=== PATIENT | female | born 1945 | race Caucasian/White ===

== ENCOUNTER 2018-12-04 03:19 | Observation (INO) ==
[2018-12-04] MEDS ORDERED: *HR* FentaNYL (PF) 100 MCG/2 ML VIAL IM ONE (04:09)
--- NOTE | 2018-12-04 04:17 | Emergency Department Note ---
Disposition Clinical Impression: Left hip pain Disposition: Still a Patient Referrals: Ana Slaughter CNP [Primary Care Provider] - Forms: ED Satisfaction Letter, Work/School Release Time of Disposition: 05:47 General Adult HPI - General Chief complaint: ED General Medical Stated complaint: left nona pain Time Seen by Provider: 12/04/18 03:32 Source: patient Nursing Notes Reviewed: Yes Vital Signs Reviewed: Yes - History of Present Illness HPI Narrative: 73-year-old female with complaint of Left lower extremity pain. She states that the pain has been persisting for "14 days". She states it is worse tonight. Tonight she mentions that she had to go to her neighbor's and all night because she was unable to move her left leg because of the pain. When I ask her, she denies any weakness, but states that she had difficulty moving it only because of pain. Most recent was approximately 2 days ago. Patient states that she has been taking Tylenol 4 times a day. She indicates the pain is just above her knee, she feels that it is better when she flexes her hip and knee on the same time. Patient states after her pain has started she was seen in the ED, and had utilized a brace and a walker, however she had fallen utilizing. She denies any reinjury since previous workups. She is not known to have a history of DVT. Patient denies any other pain other than her proximal left lower extremity. She denies any generalized muscle aches, fever, redness, swelling, bowel or bladder changes, injury or trauma. Pt denies any SI, HI, depression. Pain Scale: 5 - Related Data Home Medications Medication Instructions Recorded Confirmed ALPRAZolam [Xanax 0.5 MG Tablet] 0.5 mg PO DAILY 08/27/15 11/30/18 Acidophilus 1 tab PO DAILY 08/27/15 11/30/18 Buspirone 10 mg PO TID 08/27/15 11/30/18 Calcium Carb/Vit D3/Minerals 600 mg PO DAILY 08/27/15 11/30/18 Docosahexanoic Acid/Epa [Fish Oil 1,000 mg PO DAILY 08/27/15 11/30/18 Concentrate Softgel] Gabapentin [Neurontin] 400 mg PO HS 08/27/15 11/30/18 Glucosamine HCl/Chondr Briones A Na 1 tab PO DAILY 08/27/15 11/30/18 [[facility] Glucosamine-Chondr Caplet] Losartan 100 mg PO DAILY 08/27/15 11/30/18 Magnesium 250 mg PO DAILY 08/27/15 11/30/18 Multivitamin [Multivitamins] 1 cap PO DAILY 08/27/15 11/30/18 Potassium Chloride [K-Tab ER] 10 meq PO DAILY 08/27/15 11/30/18 Pravastatin Sodium [Pravachol] 20 mg PO DAILY 08/27/15 11/30/18 Promethazine HCl 50 mg PO TID 08/27/15 11/30/18 Ropinirole HCl [Requip] 0.5 mg PO HS 08/27/15 11/30/18 Temazepam [Restoril] 1 - 2 tab PO HS 08/27/15 11/30/18 Trazodone HCl [TraZODone] 200 mg PO HS 08/27/15 11/30/18 Venlafaxine HCl [Venlafaxine HCl 75 mg PO DAILY 08/27/15 11/30/18 ER] Venlafaxine HCl [Venlafaxine HCl 225 mg PO DAILY 08/27/15 11/30/18 ER] predniSONE [PredniSONE] 10 mg PO QID 08/27/15 11/30/18 Previous Rx's Medication Instructions Recorded Acetaminophen [Tylenol] 500 mg PO Q6HR #12 tablet 09/15/18 Lidocaine Patch [Lidoderm 5% patch] 1 each TP DAILY PRN #3 adh..patch 09/15/18 Allergies Allergy/AdvReac Type Severity Reaction Status Date / Time ampicillin [From Polycillin] Allergy Rash Verified 11/30/18 00:23 methylprednisolone Allergy Rash Verified 11/30/18 00:23 NSAIDS (Non-Steroidal Allergy Rash Verified 11/30/18 00:23 Anti-Inflamma Belladonna Alkaloids AdvReac Swelling Verified 11/30/18 00:23 [From Butibel] of Lip/Tongue/Throat Butabarbital [From Butibel] AdvReac Swelling Verified 11/30/18 00:23 of Lip/Tongue/Throat Doxepin [From Sinequan] AdvReac Swelling Verified 11/30/18 00:23 of Lip/Tongue/Throat guaifenesin AdvReac Rash Verified 11/30/18 00:23 metoclopramide AdvReac See Verified 11/30/18 00:23 Comments omeprazole AdvReac Abdominal Verified 11/30/18 00:23 Pain prednisone AdvReac Nausea Verified 11/30/18 00:23 sulfamethoxazole AdvReac See Verified 11/30/18 00:23 [From Bactrim] Comments tramadol AdvReac See Verified 11/30/18 00:23 Comments trimethoprim [From Bactrim] AdvReac See Verified 11/30/18 00:23 Comments octicar AdvReac See Uncoded 11/30/18 00:23 Comments travil AdvReac Swelling Uncoded 11/30/18 00:23 of Lip/Tongue/Throat All systems ED: reviewed and negative except as stated. Review of Systems: As Per HPI Constitutional: Denies: fever, chills, weakness Eyes: Denies: vision change ENT ED: Denies: throat pain Cardiovascular: Denies: chest pain, palpitations Respiratory: Denies: cough, dyspnea Gastrointestinal: Denies: abdominal pain, nausea, vomiting Genitourinary: Denies: dysuria, frequency Musculoskeletal: Denies: back pain, neck pain Past Medical History - Past Medical History Medical history: Reports: arthritis, asthma, fibromyalgia, hypertension, RA Psychiatric history: Reports: anxiety - Social History Smoking Status: Never smoker Smokeless Tobacco Status: No Alcohol use: Reports: none Drug use: Reports: none Physical Exam - General Limitations: no limitations General appearance: alert, in no apparent distress - Head Head exam: atraumatic, normocephalic - Eye Eye exam: Present: EOMI - ENT ENT exam: normal oropharynx - Neck Neck exam: Present: normal inspection, full ROM - Chest Chest inspection: Present: normal inspection, symmetric chest wall rise - Respiratory Respiratory exam: Present: normal lung sounds bilaterally. Absent: respiratory distress - Cardiovascular Cardiovascular exam: Present: regular rate, normal rhythm - Abdominal Exam Abdominal exam: Present: soft, Non-Tender - Expanded Lower Extremity Exam Hip/Pelvis exam: Present: full ROM, pelvis stable. Absent: tenderness, swelling, ecchymosis, erythema, external rotation, internal rotation, shortening Upper leg exam: Present: tenderness (left anterior). Absent: swelling, deformity, erythema Knee exam: Present: normal inspection, full ROM. Absent: tenderness, swelling Lower leg exam: Present: normal inspection, full ROM. Absent: tenderness, swelling Foot/toe exam: Present: normal inspection, full ROM. Absent: tenderness, swelling Neurovascular/Tendon exam: Present: normal capillary refill. Absent: pulse deficit, motor deficit, sensory deficit Gait: observed and limited by pain - Back Exam Back exam: Present: full ROM. Absent: tenderness, CVA tenderness (R), CVA tenderness (L) - Neurological Exam Neurological exam: Present: alert, oriented X3 - Psychiatric Psychiatric exam: Present: normal affect, anxious - Skin Skin exam: Present: warm, dry, intact, normal color. Absent: rash, cyanosis, diaphoresis Course Course Narrative: 73-year-old female arrives via squad to the triage area, into exam room by wheelchair with complaint of left lower leg pain. Patient is tachycardic at 124 otherwise her vitals appear to be within normal limits. I was able to see patient upon her arrival to exam room, She does appear quite anxious which I do feel is the cause of her tachycardia. Patient denies any other pain other than her proximal left lower extremity. She denies any generalized muscle aches, fe bo, bowel or bladder changes, injury or trauma.Pt denies any SI, HI, depression. On examination patient is a well-developed well-nourished elderly female in no acute distress. She is alert and oriented x3. Lungs clear to ascultation bilaterally. Heart tachycardic and regular rhythm. Abdomen soft and nontender with normal bowel sounds. No CVA or flank tenderness. No lumbar tenderness. Pelvis stable and nontender to palpation and compression. Left hip pain, appears worse with flexion and palpation. No gross focal neurological deficits. No evidence of any injury or trauma, unilateral leg swelling, concerning rashes or lesions, erythema, edema. no tenderness over her knee ankle or foot. On examination no evidence of any injury or trauma or signs of any infectious cause. I did have an opportunity to review her EMR. This is her 4th visit in two weeks. Patient has had workups including lab work, CT imaging of abdomen and pelvis, femur CT, left hip CT. Images did show some diverticulosis , mild degenerative changes of her left hip, and constipation, otherwise appear to be unremarkable. Most recent blood work was within normal limits. Initially did have a pleasant discussion with patient regarding her pain, previous treatments, and other topics. I do feel she is alert and oriented 3. Although anxious, she does not appear to be confused with some but not all questions although she does appear to be altered or intoxicated. OARRS reviewed. Pt is prescribed 0.5 alprazolam monthly by her psychiatrist Dr. Maggy Angelo. she mentions she has recently switched her PCP but is unable to tell me their names. She is unsure where or if she had any PT. She does have a brother who lives locally and apparently was with her during one of her recent hospitals stays. She becomes tearful when she mentions her concern for another "tumor", she said it was in her hip region and that it was benign. She becomes intermittently tearful during our discussion. She appears to be frustrated and more anxious when discussing her past care, and any past treatment of her hip. Exam and history does not appear to be consistent with DVT, peripheral arterial disease, lumbar radiculopathy. I will attempt to manage patien't pain and anxiety and plan for re-eval. - Reevaluation(s) Reevaluation #1: Patient did state that she had some relief after IM fentanyl and by mouth Tylenol. Additionally, her heart rate improved from 124 to 105. She does remain very anxious, and intermittently becomes tearful. I feel patient may warrant an admission as she lives alone with no home health. She utilizes Xanax at home, and I feel narcotic pain medications would increase her fall risk. I did discuss patient with Dr. Delgado who also had face time with patient and after his visit with patient, he does agree patient does not appear AMS, but does mention pt appears to have worsening chronic confusion with some psychiatric overtones. Would benefit from admission for pain control, likely social work consult, ortho consult, and possibly MRI of left hip. I have ordered basic labs, UA as well, CRP, SED rate, uric acid and CK. Time: 05:38 Reevaluation #2: At this time seen of my shift, care of this patient will be transferred over to day shift provider Krish Renteria CNP. Please see his further documentation for final evaluation and disposition of this patient. Time: 05:43 Vital Signs Temperature 98.6 F 12/04/18 03:25 Pulse Rate 124 12/04/18 03:25 Respiratory Rate 21 12/04/18 03:25 Blood Pressure 152/86 12/04/18 03:25 O2 Sat by Pulse Oximetry 97 12/04/18 03:25 Temperature 98.6 F 12/04/18 03:25 Pulse Rate 105 12/04/18 04:46 Respiratory Rate 21 12/04/18 03:25 Blood Pressure 158/85 12/04/18 04:46 O2 Sat by Pulse Oximetry 97 12/04/18 03:25 Oxygen Delivery Oxygen Delivery Room Air Medical Decision Making - Medical Records Medical records reviewed: Yes I reviewed the patient's medical records.
[2018-12-04 06:29] LABS: Bilirubin,Urine Small (Negative); Blood,Urine Negative (Negative); Clarity,Urine Clear (Clear); Color,Urine Yellow (Yellow); Glucose,Urine (UA) Normal (Normal); Ketones,Urine Trace mg/dL (Negative); Leukocyte Esterase,Urine Negative (Negative); Nitrite,Urine Negative (Negative); PH,Urine 5.5 pH Units (5.0-8.0); Protein,Urine 30 mg/dL (Neg-Trace); Specific Gravity,Urine > 1.030 (1.010-1.025); Urobilinogen,Urine Normal (Normal)
[2018-12-04 06:31] LABS: Bacteria,Urine Few per hpf (None-Few); Hyaline Casts,Urine Few per lpf (None-Few); Squamous Epithelial Cell,Urine Many per lpf (None-Few)
--- NOTE | 2018-12-04 06:54 | Emergency Department Note ---
Disposition Clinical Impression: Left hip pain Disposition: Admitted As Inpatient Condition: Good General Adult HPI - General Chief complaint: ED Extremity Problem,Nontraumatic Stated complaint: left leg pain Time Seen by Provider: 12/04/18 03:32 Source: patient Limitations: no limitations Nursing Notes Reviewed: Yes Vital Signs Reviewed: Yes - History of Present Illness Pain Scale: 5 - Related Data Home Medications Medication Instructions Recorded Confirmed ALPRAZolam [Xanax 0.5 MG Tablet] 0.5 mg PO DAILY 08/27/15 12/04/18 Multivitamin [Multivitamins] 1 cap PO DAILY 08/27/15 12/04/18 Potassium Chloride [K-Tab ER] 10 meq PO DAILY 08/27/15 12/04/18 Pravastatin Sodium [Pravachol] 20 mg PO DAILY 08/27/15 12/04/18 Buspirone HCl [Buspar] 30 mg PO BID 12/04/18 12/04/18 Cetirizine HCl [24Hour Allergy] 10 mg PO DAILY 12/04/18 12/04/18 Fluticasone Propionate Nasal 1 spr NS BID 12/04/18 12/04/18 [Flonase] Metoprolol [Lopressor] 25 mg PO BID 12/04/18 12/04/18 Sertraline [Zoloft] 100 mg PO DAILY 12/04/18 12/04/18 Solifenacin Succinate [Vesicare] 5 mg PO DAILY 12/04/18 12/04/18 Trazodone HCl 200 mg PO HS 12/04/18 12/04/18 Venlafaxine HCl [Venlafaxine HCl 150 mg PO BID 12/04/18 12/04/18 ER] Allergies Allergy/AdvReac Type Severity Reaction Status Date / Time ampicillin [From Polycillin] Allergy Rash Verified 11/30/18 00:23 methylprednisolone Allergy Rash Verified 11/30/18 00:23 NSAIDS (Non-Steroidal Allergy Rash Verified 11/30/18 00:23 Anti-Inflamma Belladonna Alkaloids AdvReac Swelling Verified 11/30/18 00:23 [From Butibel] of Lip/Tongue/Throat Butabarbital [From Butibel] AdvReac Swelling Verified 11/30/18 00:23 of Lip/Tongue/Throat Doxepin [From Sinequan] AdvReac Swelling Verified 11/30/18 00:23 of Lip/Tongue/Throat guaifenesin AdvReac Rash Verified 11/30/18 00:23 metoclopramide AdvReac See Verified 11/30/18 00:23 Comments omeprazole AdvReac Abdominal Verified 11/30/18 00:23 Pain prednisone AdvReac Nausea Verified 11/30/18 00:23 sulfamethoxazole AdvReac See Verified 11/30/18 00:23 [From Bactrim] Comments tramadol AdvReac See Verified 11/30/18 00:23 Comments trimethoprim [From Bactrim] AdvReac See Verified 11/30/18 00:23 Comments octicar AdvReac See Uncoded 11/30/18 00:23 Comments travil AdvReac Swelling Uncoded 11/30/18 00:23 of Lip/Tongue/Throat Constitutional: Denies: fever, chills, weakness Eyes: Denies: vision change ENT ED: Denies: throat pain Cardiovascular: Denies: chest pain, palpitations Respiratory: Denies: cough, dyspnea Gastrointestinal: Denies: abdominal pain, nausea, vomiting Genitourinary: Denies: dysuria, frequency Musculoskeletal: Denies: back pain, neck pain Past Medical History - Past Medical History Medical history: Reports: arthritis, asthma, fibromyalgia, hypertension, RA Psychiatric history: Reports: anxiety - Social History Smoking Status: Never smoker Smokeless Tobacco Status: No Alcohol use: Reports: none Drug use: Reports: none Physical Exam - General Limitations: no limitations General appearance: alert, in no apparent distress Course Vital Signs Temperature 98.6 F 12/04/18 03:25 Pulse Rate 124 12/04/18 03:25 Respiratory Rate 21 12/04/18 03:25 Blood Pressure 152/86 12/04/18 03:25 O2 Sat by Pulse Oximetry 97 12/04/18 03:25 Temperature 98.3 F 12/04/18 18:35 Pulse Rate 119 12/04/18 18:35 Respiratory Rate 18 12/04/18 18:35 Blood Pressure 102/64 12/04/18 18:35 O2 Sat by Pulse Oximetry 98 12/04/18 18:35 Oxygen Delivery Oxygen Delivery Nasal Cannula Medical Decision Making - Medical Records Medical records reviewed: Yes I reviewed the patient's medical records. - Lab Data Lab results reviewed: Yes I reviewed the patient's lab results. Result diagrams: 12/04/18 06:48 12/04/18 06:48 Lab Results 12/04/18 12/04/18 12/04/18 Range/Units 06:17 06:48 06:48 WBC 14.0 H (4.3-11.1) K/mcL RBC 4.62 (3.82-4.97) M/mcL Hgb 15.3 (11.5-15.4) g/dL Hct 45.3 H (35.3-44.9) % MCV 98.1 (83.0-100.0) fL MCH 33.1 (28.0-33.3) pg MCHC 33.8 (31.6-35.5) g/dL RDW 12.6 (11.5-14.5) % Plt Count 224 (140-400) K/mcL MPV 10.4 (9.4-12.4) fL Immature Gran % 0.4 (0-4) % Seg Neutrophils % 68.8 % Lymphocytes % 22.7 % Monocytes % 7.4 % Eosinophils % 0.4 % Basophils % 0.3 % Neutrophils # 9.6 H (1.6-8.9) K/mcL Lymphocytes # 3.2 (0.6-4.6) K/mcL Monocytes # 1.0 (0.0-1.3) K/mcL Eosinophils # 0.1 (0.0-0.6) K/mcL Basophils # 0.0 (0.0-0.2) K/mcL ESR 24 H (0-15) mm/hr Sodium (136-145) mEq/L Potassium (3.5-5.1) mEq/L Chloride (98-107) mEq/L Carbon Dioxide (23-29) mEq/L BUN (8-23) mg/dL Creatinine (0.60-1.20) mg/dL Est GFR ( Amer) (> 60) Est GFR (Non-Af Amer) (> 60) BUN/Creatinine Ratio (6-26) Glucose (70-105) mg/dL Calculated Osmolality (280-300) Uric Acid (2.3-7.6) mg/dL Calcium (8.6-10.3) mg/dL Creatine Kinase (30-223) Units/L C-Reactive Protein (Less than 10) mg/L Urine Color Yellow (Yellow) Urine Clarity Clear (Clear) Urine pH 5.5 (5.0-8.0) pH Units Ur Specific [place] > 1.030 H (1.010-1.025) Urine Protein 30 H (Neg-Trace) mg/dL Urine Glucose (UA) Normal (Normal) mg/dL Urine Ketones Trace H (Negative) mg/dL Urine Blood Negative (Negative) Urine Nitrite Negative (Negative) Urine Bilirubin Small H (Negative) Urine Urobilinogen Normal (Normal) mg/dL Ur Leukocyte Esterase Negative (Negative) Urine Microscopic RBC 5-15 H (0-3) per hpf Urine Microscopic WBC 3-5 H (0-3) per hpf Ur Squamous Epith Cells Many H (None-Few) per lpf Urine Bacteria Few (None-Few) per hpf Hyaline Casts Few (None-Few) per lpf Ur Culture Indicated? YES A (NO) 12/04/18 Range/Units 06:48 WBC (4.3-11.1) K/mcL RBC (3.82-4.97) M/mcL Hgb (11.5-15.4) g/dL Hct (35.3-44.9) % MCV (83.0-100.0) fL MCH (28.0-33.3) pg MCHC (31.6-35.5) g/dL RDW (11.5-14.5) % Plt Count (140-400) K/mcL MPV (9.4-12.4) fL Immature Gran % (0-4) % Seg Neutrophils % % Lymphocytes % % Monocytes % % Eosinophils % % Basophils % % Neutrophils # (1.6-8.9) K/mcL Lymphocytes # (0.6-4.6) K/mcL Monocytes # (0.0-1.3) K/mcL Eosinophils # (0.0-0.6) K/mcL Basophils # (0.0-0.2) K/mcL ESR (0-15) mm/hr Sodium 140 (136-145) mEq/L Potassium 3.6 (3.5-5.1) mEq/L Chloride 106 (98-107) mEq/L Carbon Dioxide 23 (23-29) mEq/L BUN 17 (8-23) mg/dL Creatinine 0.85 (0.60-1.20) mg/dL Est GFR ( Amer) > 60 (> 60) Est GFR (Non-Af Amer) > 60 (> 60) BUN/Creatinine Ratio 20 (6-26) Glucose 100 (70-105) mg/dL Calculated Osmolality 292 (280-300) Uric Acid 4.3 (2.3-7.6) mg/dL Calcium 10.1 (8.6-10.3) mg/dL Creatine Kinase 124 (30-223) Units/L C-Reactive Protein < 5 (Less than 10) mg/L Urine Color (Yellow) Urine Clarity (Clear) Urine pH (5.0-8.0) pH Units Ur Specific [place] (1.010-1.025) Urine Protein (Neg-Trace) mg/dL Urine Glucose (UA) (Normal) mg/dL Urine Ketones (Negative) mg/dL Urine Blood (Negative) Urine Nitrite (Negative) Urine Bilirubin (Negative) Urine Urobilinogen (Normal) mg/dL Ur Leukocyte Esterase (Negative) Urine Microscopic RBC (0-3) per hpf Urine Microscopic WBC (0-3) per hpf Ur Squamous Epith Cells (None-Few) per lpf Urine Bacteria (None-Few) per hpf Hyaline Casts (None-Few) per lpf Ur Culture Indicated? (NO) Attestation Statement - Attestation Attestation: I, Antonio Delgado MD, personally evaluated this patient and discussed their management with the midlevel provicer, PAC/PARTS COUNTER ASSOCIATE. I reviewed the midlevel provider's note and agree with the documented findings, medical decision making, and plan of care. 73-year-old female presented to the emergency department with a complaint of pain in her left groin and hip area. She states this started 14 days ago. She denies any fall or injury to the area. Onset was sudden. She states it only h urts when she puts pressure on the hip and she has had difficulty ambulating. This is her fourth visit to the emergency department for this complaint. She has had previous CT scans and workups. She apparently was sent home with a walker and knee immobilizer on the initial visit but then she states she fell 3 times at home because of the knee immobilizer and walker so she quit using them. She apparently also has a psychiatric history. She does appear very anxious and tearful intermittently. Patient also seems to have some degree of dementia. She seems to get confused while talking with her and has trouble answering some questions. She states that she had some kind of surgery on her left hip for a cyst in the joint many years ago however I do not see any scar over the hip area. On examination patient is a well-developed well-nourished elderly female in no acute distress. She is alert and oriented 3. There is no cyanosis or diaphoresis. Breath sounds are clear and equal bilaterally. Heart regular rate and rhythm. Abdomen soft and nontender with normal bowel sounds. There is tenderness to palpation in the left inguinal region. No palpable mass or lymph nodes. No swelling or redness. She has good range of motion of the left hip but has pain with movement. Neurovascular function intact distally. On further discussion with the patient I ask her what she felt we could do to help her and she reported that she did not feel comfortable going home and felt like she needed to come in the hospital for a few days for them to find out what is going on with her hip. We will obtain lab work and consult the hospitalist for admission for reevaluation and possible MRI of the hip as well as social media specialist evaluation. Labs reviewed. At shift change patient was signed out to the oncoming mid-level provider. Hospitalist consulted and accepted admission of the patient.
[2018-12-04 06:59] LABS: Basophils % 0.3 %; Eosinophils # 0.1 K/mcL (0.0-0.6); Eosinophils % 0.4 %; Hematocrit 45.3 % (35.3-44.9); Hemoglobin 15.3 g/dL (11.5-15.4); Immature Granulocytes % 0.4 % (0-4); Lymphocytes # 3.2 K/mcL (0.6-4.6); Lymphocytes % 22.7 %; Mean Corpuscular HGB Conc 33.8 g/dL (31.6-35.5); Mean Corpuscular Hemoglobin 33.1 pg (28.0-33.3); Mean Corpuscular Volume 98.1 fL (83.0-100.0); Mean Platelet Volume 10.4 fL (9.4-12.4); Monocytes % 7.4 %; Neutrophils # 9.6 K/mcL (1.6-8.9); Platelet Count 224 K/mcL (140-400); Red Blood Count 4.62 M/mcL (3.82-4.97); Red Cell Distribution Width 12.6 % (11.5-14.5); Segmented Neutrophils % 68.8 %
--- NOTE | 2018-12-04 07:02 | Emergency Department Note ---
Disposition Clinical Impression: Left hip pain Disposition: Admitted As Inpatient Condition: Good Time of Disposition: 08:37 General Adult HPI - General Chief complaint: ED Extremity Problem,Nontraumatic Stated complaint: left leg pain Time Seen by Provider: 12/04/18 03:32 Source: patient Limitations: no limitations - History of Present Illness Pain Scale: 5 - Related Data Home Medications Medication Instructions Recorded Confirmed ALPRAZolam [Xanax 0.5 MG Tablet] 0.5 mg PO DAILY 08/27/15 11/30/18 Acidophilus 1 tab PO DAILY 08/27/15 11/30/18 Buspirone 10 mg PO TID 08/27/15 11/30/18 Calcium Carb/Vit D3/Minerals 600 mg PO DAILY 08/27/15 11/30/18 Docosahexanoic Acid/Epa [Fish Oil 1,000 mg PO DAILY 08/27/15 11/30/18 Concentrate Softgel] Gabapentin [Neurontin] 400 mg PO HS 08/27/15 11/30/18 Glucosamine HCl/Chondr Briones A Na 1 tab PO DAILY 08/27/15 11/30/18 [[facility] Glucosamine-Chondr Caplet] Losartan 100 mg PO DAILY 08/27/15 11/30/18 Magnesium 250 mg PO DAILY 08/27/15 11/30/18 Multivitamin [Multivitamins] 1 cap PO DAILY 08/27/15 11/30/18 Potassium Chloride [K-Tab ER] 10 meq PO DAILY 08/27/15 11/30/18 Pravastatin Sodium [Pravachol] 20 mg PO DAILY 08/27/15 11/30/18 Promethazine HCl 50 mg PO TID 08/27/15 11/30/18 Ropinirole HCl [Requip] 0.5 mg PO HS 08/27/15 11/30/18 Temazepam [Restoril] 1 - 2 tab PO HS 08/27/15 11/30/18 Trazodone HCl [TraZODone] 200 mg PO HS 08/27/15 11/30/18 Venlafaxine HCl [Venlafaxine HCl 75 mg PO DAILY 08/27/15 11/30/18 ER] Venlafaxine HCl [Venlafaxine HCl 225 mg PO DAILY 08/27/15 11/30/18 ER] predniSONE [PredniSONE] 10 mg PO QID 08/27/15 11/30/18 Previous Rx's Medication Instructions Recorded Acetaminophen [Tylenol] 500 mg PO Q6HR #12 tablet 09/15/18 Lidocaine Patch [Lidoderm 5% patch] 1 each TP DAILY PRN #3 adh..patch 09/15/18 Allergies Allergy/AdvReac Type Severity Reaction Status Date / Time ampicillin [From Polycillin] Allergy Rash Verified 11/30/18 00:23 methylprednisolone Allergy Rash Verified 11/30/18 00:23 NSAIDS (Non-Steroidal Allergy Rash Verified 11/30/18 00:23 Anti-Inflamma Belladonna Alkaloids AdvReac Swelling Verified 11/30/18 00:23 [From Butibel] of Lip/Tongue/Throat Butabarbital [From Butibel] AdvReac Swelling Verified 11/30/18 00:23 of Lip/Tongue/Throat Doxepin [From Sinequan] AdvReac Swelling Verified 11/30/18 00:23 of Lip/Tongue/Throat guaifenesin AdvReac Rash Verified 11/30/18 00:23 metoclopramide AdvReac See Verified 11/30/18 00:23 Comments omeprazole AdvReac Abdominal Verified 11/30/18 00:23 Pain prednisone AdvReac Nausea Verified 11/30/18 00:23 sulfamethoxazole AdvReac See Verified 11/30/18 00:23 [From Bactrim] Comments tramadol AdvReac See Verified 11/30/18 00:23 Comments trimethoprim [From Bactrim] AdvReac See Verified 11/30/18 00:23 Comments octicar AdvReac See Uncoded 11/30/18 00:23 Comments travil AdvReac Swelling Uncoded 11/30/18 00:23 of Lip/Tongue/Throat Constitutional: Denies: fever, chills, weakness Eyes: Denies: vision change ENT ED: Denies: throat pain Cardiovascular: Denies: chest pain, palpitations Respiratory: Denies: cough, dyspnea Gastrointestinal: Denies: abdominal pain, nausea, vomiting Genitourinary: Denies: dysuria, frequency Musculoskeletal: Denies: back pain, neck pain Past Medical History - Past Medical History Medical history: Reports: arthritis, asthma, fibromyalgia, hypertension, RA Psychiatric history: Reports: anxiety - Social History Smoking Status: Never smoker Smokeless Tobacco Status: No Alcohol use: Reports: none Drug use: Reports: none Physical Exam - General Limitations: no limitations General appearance: alert, in no apparent distress Course Course Narrative: 599: I have assumed care of this patient from DEBORAH Nicolas due to mid-level shift change. Please see Fidencio's documentation for care performed prior to my arrival. Briefly, this is an alert and oriented 73-year-old female resents for complaints of left groin/thigh pain. Pain has been persistent for the past 2 weeks or so. This is her fourth visit since November 20 for the same complaint. She states that she has difficulty ambulating because of the pain. She denies any weakness of the extremity. She has been taking Tylenol regularly at home without improvement. She had been utilizing a knee brace and walker however she had had a fall while utilizing these devices. No additional injury since previous workups. She denied any fever or chills. She has had multiple images performed on the left hip. CT shows mild degenerative changes of the left hip, otherwise unremarkable. Throughout Fidencio's consultation patient, she became tearful on multiple occasions. She denied any homicidal or suicidal ideations. She appeared to be a frustrating with this unexplained left hip pain. She was given intramuscular fentanyl and by mouth Tylenol. She stated she did have some relief afterwards. She remains anxious and tearful. The patient lives home alone with no home health or other assistance. This patient's case was di scussed with Dr. Delgado. It was agreed that the patient would benefit from admission to the hospital service for potential orthopedics consult as well as potential social sciences research scientist input. Laboratory workup is pending at this time. I spoke with the admitting hospitalist, Dr. Jeffrey who has accepted the patient for admission to the hospital service. Vital Signs Temperature 98.6 F 12/04/18 03:25 Pulse Rate 124 12/04/18 03:25 Respiratory Rate 21 12/04/18 03:25 Blood Pressure 152/86 12/04/18 03:25 O2 Sat by Pulse Oximetry 97 12/04/18 03:25 Temperature 98.6 F 12/04/18 03:25 Pulse Rate 88 12/04/18 07:52 Respiratory Rate 16 12/04/18 07:52 Blood Pressure 194/92 12/04/18 07:52 O2 Sat by Pulse Oximetry 98 12/04/18 07:52 Oxygen Delivery Oxygen Delivery Room Air Medical Decision Making - Medical Records Medical records reviewed: Yes I reviewed the patient's medical records. - Lab Data Lab results reviewed: Yes I reviewed the patient's lab results. Lab results narrative: Lab Results 12/04/18 12/04/18 12/04/18 Range/Units 06:17 06:48 06:48 WBC 14.0 H (4.3-11.1) K/mcL RBC 4.62 (3.82-4.97) M/mcL Hgb 15.3 (11.5-15.4) g/dL Hct 45.3 H (35.3-44.9) % MCV 98.1 (83.0-100.0) fL MCH 33.1 (28.0-33.3) pg MCHC 33.8 (31.6-35.5) g/dL RDW 12.6 (11.5-14.5) % Plt Count 224 (140-400) K/mcL MPV 10.4 (9.4-12.4) fL Immature Gran % 0.4 (0-4) % Seg Neutrophils % 68.8 % Lymphocytes % 22.7 % Monocytes % 7.4 % Eosinophils % 0.4 % Basophils % 0.3 % Neutrophils # 9.6 H (1.6-8.9) K/mcL Lymphocytes # 3.2 (0.6-4.6) K/mcL Monocytes # 1.0 (0.0-1.3) K/mcL Eosinophils # 0.1 (0.0-0.6) K/mcL Basophils # 0.0 (0.0-0.2) K/mcL ESR 24 H (0-15) mm/hr Sodium (136-145) mEq/L Potassium (3.5-5.1) mEq/L Chloride (98-107) mEq/L Carbon Dioxide (23-29) mEq/L BUN (8-23) mg/dL Creatinine (0.60-1.20) mg/dL Est GFR ( Amer) (> 60) Est GFR (Non-Af Amer) (> 60) BUN/Creatinine Ratio (6-26) Glucose (70-105) mg/dL Calculated Osmolality (280-300) Uric Acid (2.3-7.6) mg/dL Calcium (8.6-10.3) mg/dL Creatine Kinase (30-223) Units/L C-Reactive Protein (Less than 10) mg/L Urine Color Yellow (Yellow) Urine Clarity Clear (Clear) Urine pH 5.5 (5.0-8.0) pH Units Ur Specific [place] > 1.030 H (1.010-1.025) Urine Protein 30 H (Neg-Trace) mg/dL Urine Glucose (UA) Normal (Normal) mg/dL Urine Ketones Trace H (Negative) mg/dL Urine Blood Negative (Negative) Urine Nitrite Negative (Negative) Urine Bilirubin Small H (Negative) Urine Urobilinogen Normal (Normal) mg/dL Ur Leukocyte Esterase Negative (Negative) Urine Microscopic RBC 5-15 H (0-3) per hpf Urine Microscopic WBC 3-5 H (0-3) per hpf Ur Squamous Epith Cells Many H (None-Few) per lpf Urine Bacteria Few (None-Few) per hpf Hyaline Casts Few (None-Few) per lpf Ur Culture Indicated? YES A (NO) 12/04/18 Range/Units 06:48 WBC (4.3-11.1) K/mcL RBC (3.82-4.97) M/mcL Hgb (11.5-15.4) g/dL Hct (35.3-44.9) % MCV (83.0-100.0) fL MCH (28.0-33.3) pg MCHC (31.6-35.5) g/dL RDW (11.5-14.5) % Plt Count (140-400) K/mcL MPV (9.4-12.4) fL Immature Gran % (0-4) % Seg Neutrophils % % Lymphocytes % % Monocytes % % Eosinophils % % Basophils % % Neutrophils # (1.6-8.9) K/mcL Lymphocytes # (0.6-4.6) K/mcL Monocytes # (0.0-1.3) K/mcL Eosinophils # (0.0-0.6) K/mcL Basophils # (0.0-0.2) K/mcL ESR (0-15) mm/hr Sodium 140 (136-145) mEq/L Potassium 3.6 (3.5-5.1) mEq/L Chloride 106 (98-107) mEq/L Carbon Dioxide 23 (23-29) mEq/L BUN 17 (8-23) mg/dL Creatinine 0.85 (0.60-1.20) mg/dL Est GFR ( Amer) > 60 (> 60) Est GFR (Non-Af Amer) > 60 (> 60) BUN/Creatinine Ratio 20 (6-26) Glucose 100 (70-105) mg/dL Calculated Osmolality 292 (280-300) Uric Acid 4.3 (2.3-7.6) mg/dL Calcium 10.1 (8.6-10.3) mg/dL Creatine Kinase 124 (30-223) Units/L C-Reactive Protein < 5 (Less than 10) mg/L Urine Color (Yellow) Urine Clarity (Clear) Urine pH (5.0-8.0) pH Units Ur Specific [place] (1.010-1.025) Urine Protein (Neg-Trace) mg/dL Urine Glucose (UA) (Normal) mg/dL Urine Ketones (Negative) mg/dL Urine Blood (Negative) Urine Nitrite (Negative) Urine Bilirubin (Negative) Urine Urobilinogen (Normal) mg/dL Ur Leukocyte Esterase (Negative) Urine Microscopic RBC (0-3) per hpf Urine Microscopic WBC (0-3) per hpf Ur Squamous Epith Cells (None-Few) per lpf Urine Bacteria (None-Few) per hpf Hyaline Casts (None-Few) per lpf Ur Culture Indicated? (NO) Result diagrams: 12/04/18 06:48 12/04/18 06:48 Lab Results 12/04/18 12/04/18 12/04/18 Range/Units 06:17 06:48 06:48 WBC 14.0 H (4.3-11.1) K/mcL RBC 4.62 (3.82-4.97) M/mcL Hgb 15.3 (11.5-15.4) g/dL Hct 45.3 H (35.3-44.9) % MCV 98.1 (83.0-100.0) fL MCH 33.1 (28.0-33.3) pg MCHC 33.8 (31.6-35.5) g/dL RDW 12.6 (11.5-14.5) % Plt Count 224 (140-400) K/mcL MPV 10.4 (9.4-12.4) fL Immature Gran % 0.4 (0-4) % Seg Neutrophils % 68.8 % Lymphocytes % 22.7 % Monocytes % 7.4 % Eosinophils % 0.4 % Basophils % 0.3 % Neutrophils # 9.6 H (1.6-8.9) K/mcL Lymphocytes # 3.2 (0.6-4.6) K/mcL Monocytes # 1.0 (0.0-1.3) K/mcL Eosinophils # 0.1 (0.0-0.6) K/mcL Basophils # 0.0 (0.0-0.2) K/mcL ESR 24 H (0-15) mm/hr Sodium (136-145) mEq/L Potassium (3.5-5.1) mEq/L Chloride (98-107) mEq/L Carbon Dioxide (23-29) mEq/L BUN (8-23) mg/dL Creatinine (0.60-1.20) mg/dL Est GFR ( Amer) (> 60) Est GFR (Non-Af Amer) (> 60) BUN/Creatinine Ratio (6-26) Glucose (70-105) mg/dL Calculated Osmolality (280-300) Uric Acid (2.3-7.6) mg/dL Calcium (8.6-10.3) mg/dL Creatine Kinase (30-223) Units/L C-Reactive Protein (Less than 10) mg/L Urine Color Yellow (Yellow) Urine Clarity Clear (Clear) Urine pH 5.5 (5.0-8.0) pH Units Ur Specific [place] > 1.030 H (1.010-1.025) Urine Protein 30 H (Neg-Trace) mg/dL Urine Glucose (UA) Normal (Normal) mg/dL Urine Ketones Trace H (Negative) mg/dL Urine Blood Negative (Negative) Urine Nitrite Negative (Negative) Urine Bilirubin Small H (Negative) Urine Urobilinogen Normal (Normal) mg/dL Ur Leukocyte Esterase Negative (Negative) Urine Microscopic RBC 5-15 H (0-3) per hpf Urine Microscopic WBC 3-5 H (0-3) per hpf Ur Squamous Epith Cells Many H (None-Few) per lpf Urine Bacteria Few (None-Few) per hpf Hyaline Casts Few (None-Few) per lpf Ur Culture Indicated? YES A (NO) 12/04/18 Range/Units 06:48 WBC (4.3-11.1) K/mcL RBC (3.82-4.97) M/mcL Hgb (11.5-15.4) g/dL Hct (35.3-44.9) % MCV (83.0-100.0) fL MCH (28.0-33.3) pg MCHC (31.6-35.5) g/dL RDW (11.5-14.5) % Plt Count (140-400) K/mcL MPV (9.4-12.4) fL Immature Gran % (0-4) % Seg Neutrophils % % Lymphocytes % % Monocytes % % Eosinophils % % Basophils % % Neutrophils # (1.6-8.9) K/mcL Lymphocytes # (0.6-4.6) K/mcL Monocytes # (0.0-1.3) K/mcL Eosinophils # (0.0-0.6) K/mcL Basophils # (0.0-0.2) K/mcL ESR (0-15) mm/hr Sodium 140 (136-145) mEq/L Potassium 3.6 (3.5-5.1) mEq/L Chloride 106 (98-107) mEq/L Carbon Dioxide 23 (23-29) mEq/L BUN 17 (8-23) mg/dL Creatinine 0.85 (0.60-1.20) mg/dL Est GFR ( Amer) > 60 (> 60) Est GFR (Non-Af Amer) > 60 (> 60) BUN/Creatinine Ratio 20 (6-26) Glucose 100 (70-105) mg/dL Calculated Osmolality 292 (280-300) Uric Acid 4.3 (2.3-7.6) mg/dL Calcium 10.1 (8.6-10.3) mg/dL Creatine Kinase 124 (30-223) Units/L C-Reactive Protein < 5 (Less than 10) mg/L Urine Color (Yellow) Urine Clarity (Clear) Urine pH (5.0-8.0) pH Units Ur Specific [place] (1.010-1.025) Urine Protein (Neg-Trace) mg/dL Urine Glucose (UA) (Normal) mg/dL Urine Ketones (Negative) mg/dL Urine Blood (Negative) Urine Nitrite (Negative) Urine Bilirubin (Negative) Urine Urobilinogen (Normal) mg/dL Ur Leukocyte Esterase (Negative) Urine Microscopic RBC (0-3) per hpf Urine Microscopic WBC (0-3) per hpf Ur Squamous Epith Cells (None-Few) per lpf Urine Bacteria (None-Few) per hpf Hyaline Casts (None-Few) per lpf Ur Culture Indicated? (NO)
[2018-12-04 07:17] LABS: BUN/Creatinine Ratio 20 (6-26); Blood Urea Nitrogen 17 mg/dL (8-23); Calcium 10.1 mg/dL (8.6-10.3); Carbon Dioxide 23 mEq/L (23-29); Chloride 106 mEq/L (98-107); Creatine Kinase 124 Units/L (30-223); Glucose 100 mg/dL (70-105); Osmolality,Calculated 292 (280-300); Potassium 3.6 mEq/L (3.5-5.1); Sodium 140 mEq/L (136-145); Uric Acid 4.3 mg/dL (2.3-7.6); eGFR For Non-African Americans > 60 (> 60)
[2018-12-04] MEDS ORDERED: *HR* FentaNYL (PF) 100 MCG/2 ML VIAL IVP ONE (07:29)
[2018-12-04 08:00] LABS: C-Reactive Protein < 5 mg/L (Less than 10)
[2018-12-04] MEDS ORDERED: Naloxone 0.4 MG/ML INJ IVP PRN (08:19)
[2018-12-04] MEDS ORDERED: traMADol 50 MG TABLET PO PRN (08:55)
[2018-12-04] MEDS ORDERED: Acetaminophen 325 MG TABLET PO PRN (08:56)
--- NOTE | 2018-12-04 09:47 | Internal Med History&Physical ---
Date of Encounter: 12/04/18 Time of Encounter: 09:45 Internal Medicine - H&P: HPI Chief complaint: left hip pain History of present illness: Ms. Sanabria is a 73 year old female with pmh of arthritis, fibromyalgia presenting with complaints of left hip pain of about 1 week duration. Patient says pain started after exercise and she has been unable to walk. She lives by h erself at home. She has been to the ER 3 times in the past week since the pain started. Pain started about 2 weeks ago while exercising at [employer] on a bicycle. She had a femur CT done showing moderate pucbic symphisis and mild left hip degenerative changes and was discharged home on a knee brace and pain control. Today is her 4th visit and she reports taking tylenol at home with no improvement. She also had a fall while using the knee brace she was discharged with. She has aso has a tangential thought process and is unable to have a focused conversation. she was also unable to recall who the president is In the ER, she was given fentanyl and tylenol and had some relief. Due to co ntinued fall risk and harm , and unexplained hip pain she will be admitted for further management Past Med Surg Social Fam HX - Past Medical History Medical history: arthritis, asthma, fibromyalgia, hypertension, RA Psychiatric history: anxiety - Past Surgical History Additional surgical history: Lypoma from R Hip. Eardrum Repair. Bladder Tuck - Social History Smoking Status: Never smoker Smokeless Tobacco Status: No Alcohol use: none Drug use: none - Family History Sister Adopted: [place]: Chante Youssef Age: 70 Family Member Ethnicity: Non- Living Status: Still Living Hx Family Cardiac Disorders: No Hx Family Respiratory Disorders: Yes (needs O2) Hx Family Cancer: No Hx Family GI Disorders: No Hx Family Genitourinary Disorders: No Hx Family Endocrine Disorder: No Hx Family Musculoskeletal Disorders: No Hx Family Neuromuscular Disorders: No Hx Family Neurologic Disorders: No Hx Family HEENT Disorders: No Hx Family Autoimmune Disorders: No Hx Family Reproductive Disorders: No Hx Family Psychosocial Disorders: No Hx Family Medical Disorders: No Internal Medicine - H&P: Meds ALPRAZolam [Xanax 0.5 MG Tablet] 0.5 mg PO DAILY 08/27/15 [History] Acidophilus 1 tab PO DAILY 08/27/15 [History] Buspirone 10 mg PO TID 08/27/15 [History] Calcium Carb/Vit D3/Minerals 600 mg PO DAILY 08/27/15 [History] Docosahexanoic Acid/Epa [Fish Oil Concentrate Softgel] 1,000 mg PO DAILY 08/27/15 [History] Gabapentin [Neurontin] 400 mg PO HS 08/27/15 [History] Glucosamine HCl/Chondr Briones A Na [[facility] Glucosamine-Chondr Caplet] 1 tab PO DAILY 08/27/15 [History] Losartan 100 mg PO DAILY 08/27/15 [History] Magnesium 250 mg PO DAILY 08/27/15 [History] Multivitamin [Multivitamins] 1 cap PO DAILY 08/27/15 [History] Potassium Chloride [K-Tab ER] 10 meq PO DAILY 08/27/15 [History] Pravastatin Sodium [Pravachol] 20 mg PO DAILY 08/27/15 [History] Promethazine HCl 50 mg PO TID 08/27/15 [History] Ropinirole HCl [Requip] 0.5 mg PO HS 08/27/15 [History] Temazepam [Restoril] 1 - 2 tab PO HS 08/27/15 [History] Trazodone HCl [TraZODone] 200 mg PO HS 08/27/15 [History] Venlafaxine HCl [Venlafaxine HCl ER] 75 mg PO DAILY 08/27/15 [History] Venlafaxine HCl [Venlafaxine HCl ER] 225 mg PO DAILY 08/27/15 [History] predniSONE [PredniSONE] 10 mg PO QID 08/27/15 [History] Acetaminophen [Tylenol] 500 mg PO Q6HR #12 tablet 09/15/18 [Rx] Lidocaine Patch [Lidoderm 5% patch] 1 each TP DAILY PRN #3 adh..patch 09/15/18 [Rx] Allergy/AdvReac Type Severity Reaction Status Date / Time ampicillin [From Polycillin] Allergy Rash Verified 11/30/18 00:23 methylprednisolone Allergy Rash Verified 11/30/18 00:23 NSAIDS (Non-Steroidal Allergy Rash Verified 11/30/18 00:23 Anti-Inflamma Belladonna Alkaloids AdvReac Swelling Verified 11/30/18 00:23 [From Butibel] of Lip/Tongue/Throat Butabarbital [From Butibel] AdvReac Swelling Verified 11/30/18 00:23 of Lip/Tongue/Throat Doxepin [From Sinequan] AdvReac Swelling Verified 11/30/18 00:23 of Lip/Tongue/Throat guaifenesin AdvReac Rash Verified 11/30/18 00:23 metoclopramide AdvReac See Verified 11/30/18 00:23 Comments omeprazole AdvReac Abdominal Verified 11/30/18 00:23 Pain prednisone AdvReac Nausea Verified 11/30/18 00:23 sulfamethoxazole AdvReac See Verified 11/30/18 00:23 [From Bactrim] Comments tramadol AdvReac See Verified 11/30/18 00:23 Comments trimethoprim [From Bactrim] AdvReac See Verified 11/30/18 00:23 Comments octicar AdvReac See Uncoded 11/30/18 00:23 Comments travil AdvReac Swelling Uncoded 11/30/18 00:23 of Lip/Tongue/Throat All Systems PM: A 10-system review of systems was performed and is negative for pertinent findings except as documented above in the HPI. - Constitutional Constitutional: no chills, no fever(s), no night sweats - EENT Eyes: no change in vision, no discharge, no pain, no photophobia Ears: no ear discharge, no ear pain, no tinnitus Nose, mouth and throat: no dysphagia, no nasal discharge, no neck pain, no sore throat - Cardiovascular Cardiovascular ROS IM: no chest pain, no diaphoresis, no dyspnea, no lightheadedness, no palpitations, no syncope - Respiratory Respiratory: no cough, no dyspnea, no wheezing, no excessive phlegm production - Gastrointestinal Gastrointestinal: no abdominal pain, no diarrhea, no hematemesis, no hematochezia, no melena, no nausea, no vomiting - Genitourinary Genitourinary: no change in urinary stream, no dysuria, no flank pain, no hematuria - Musculoskeletal Musculoskeletal ROS IM: no numbness, no tingling - Integumentary Integumentary IM: no rash, no unusual bruising - Neurological Neurological ROS: no confusion, no convulsions, no focal weakness, no numbness, no tingling, no tremor(s) - Hematologic/Lymphatic Hematologic/Lymphatic: no easy bruising - Constitutional Vitals: Temp Pulse Resp BP Pulse Ox 98.6 F 88 16 155/94 98 12/04/18 03:25 12/04/18 07:52 12/04/18 08:45 12/04/18 08:45 12/04/18 07:52 Exam: NAD - Head Head exam: Present: atraumatic, normocephalic - Eye Eye exam: Present: PERRL, conjuntiva pink, sclera anicteric Pupils: Present: PERRL - Neck Neck exam general surgery: Present: supple, trachea midline. Absent: lymphadenopathy - Respiratory Respiratory exam: Present: CTAB. Absent: accessory muscle use, rales, rhonchi, wheezes - Cardiovascular Cardiovascular exam: Present: RRR, +S1, +S2. Absent: diastolic murmur, gallop, rubs, systolic murmur - GI/Abdominal GI/Abdominal exam: Present: normal bowel sounds, soft, no peritoneal signs. Absent: distended, tenderness - Extremities Exam Extremities exam: Present: warm, radial pulses palpable and symmetrical. Absent: calf tenderness, cyanotic, pedal edema - Neurological Exam Neurological exam: Present: CN II-XII intact, oriented X3, no focal deficits. Absent: pronater drift, facial droop, speech deficit - Skin Skin exam: Present: dry, intact Internal Med - H&P Results - Labs CBC & Chem 7: 12/04/18 06:48 12/04/18 06:48 Labs: Short CBC 12/04/18 Range/Units 06:48 WBC 14.0 H (4.3-11.1) K/mcL Hgb 15.3 (11.5-15.4) g/dL Hct 45.3 H (35.3-44.9) % Plt Count 224 (140-400) K/mcL Neutrophils # 9.6 H (1.6-8.9) K/mcL BMP 12/04/18 06:48 Sodium 140 Potassium 3.6 Chloride 106 Carbon Dioxide 23 BUN 17 Creatinine 0.85 Glucose 100 Calcium 10.1 Urine 12/04/18 Range/Units 06:17 Urine Color Yellow (Yellow) Urine Clarity Clear (Clear) Urine pH 5.5 (5.0-8.0) pH Units Ur Specific [place] > 1.030 H (1.010-1.025) Urine Protein 30 H (Neg-Trace) mg/dL Urine Glucose (UA) Normal (Normal) mg/dL - Assessment and Plan (1) Left hip pain Current Visit: Yes Status: Acute Assessment and plan: Pt has left hip pain of unclear etiology. Happened while exercising on a bike at the [employer] [facility]. has history of fibromyalgia and arthritis CT hip unremarkable. Will obtain MRI of left hip, pain control as needed Ortho consult if any findings on MRI, otherwise pt will need physical therapy and social work consult for possible rehab placement Lives by herself and is an unsafe discharge home by herself (2) Psychiatric disorder Current Visit: Yes Status: Acute Assessment and plan: Patient has tangential speech and is intermittently confused. Cannot tell me who the president is and gets excited inappropriately Unclear psych history. Will consult psychiatry for further management (3) Leukocytosis Current Visit: Yes Status: Acute Assessment and plan: No clear source of infection. Afebrile. Will obtain chest xray Monitor CBC. No indication for antibiotics Qualifiers: Qualified Code(s): D72.829 - Elevated white blood cell count, unspecified (4) Hypertension Current Visit: Yes Status: Acute Assessment and plan: Continue home meds with losartan Qualifiers: Qualified Code(s): I10 - Essential (primary) hypertension (5) DVT prophylaxis Current Visit: Yes Status: Acute Assessment and plan: heparin sc - Time Spent With Patient Total time spent is greater than 50% in coordination of care (as documented) at patient's floor/unit and/or counseling patient:
[2018-12-04] MEDS ORDERED: *HR* LORazepam 2 MG/ML VIAL IVP PRN (11:15)
--- NOTE | 2018-12-04 11:37 | Consult Note ---
Date of Encounter: 12/04/18 Time of Encounter: 11:26 Assessment & Recommendation (1) Altered mental status Current visit: Yes Status: Acute Assessment & Recommendation: Client looks delirious to this health underwriter. She is tangential and labile with confusion and word finding difficulty. She has a history of depression that reportedly responds well to outpatient treatment. No history of psychosis. Of note, her home med list has Xanax and Restoril listed which are both benzos so withdrawal should not be ruled out. Client said she was good about taking her meds as prescribed but was unable to tell this health underwriter then names of any of her home meds. If she is misusing her benzos then withdrawal could be a possible cause of her presentation. May want to get a tox screen and monitor vital signs. Haldol is the most studied med for delirium. Would recommend starting her on a low dose to see if it helps her clear up. Would keep her on telemetry, especially if given IV. Can start with just 2.5mg at a time and use 4-6 hours as needed. Can increase dose based on tolerability and clinical response. Call if any questions. Qualifiers: Altered mental status type: delirium Qualified Code(s): R41.0 - Disorientation, unspecified History of Present Illness Requesting Physician: Nisa Jeffrey Reason for consult: psychosis History of present illness: Ms. Sanabria is a 73 year old female who was admitted medically secondary to hip pain. Psychiatry was consulted for possible psychosis. On exam client is very tangential and labile. Client states she is treated at the [facility] for depression but that she has never been given a mental health diagnosis other than depression. Denies SI, intent or plan and states she has never been suicidal nor made any suicide attempts. Denies a history of a thought disorder. Denies a history of AH/VH and denies hallucinations currently. Admits she feels confused and that she can't get her words out but denies paranoia or mood instability. Does not know her medications by name but reports she is good about taking them. Her list of home meds in the computer includes Effexor, Buspar, Restoril, and Xanax. Client states she is typically physically healthy. Denies any AOD use. Lives alone and no family at bedside so no collateral information available. According to her nurse client has presented to the ER four times in the last week with this hip pain. According to client she is only taking Tylenol at home. Constantly moving in her bed. Constantly adjusting herself. As soon as someone leaves her room she will press the call light. In the ER she apparently thought the pulse ox was a pain pump and she kept pressing it. Has some degree of disorganization in speech and behavior. Oriented to person, place, and time but apparently thinks Russ is the president and Michelle is the [employer]. CC: Nisa Jeffrey Past Med Surg Social Fam HX - Past Medical History Medical history: arthritis, asthma, fibromyalgia, hypertension, RA - Past Psychiatric History Psychiatric history: Reports: depression Family psychiatric history: Unknown Family History of Suicide: Unknown - Social History Smoking Status: Never smoker Smokeless Tobacco Status: No Alcohol use: none Drug use: none - Family History Sister Adopted: [place]: Chante Youssef Age: 70 Family Member Ethnicity: Non- Living Status: Still Living Hx Family Cardiac Disorders: No Hx Family Respiratory Disorders: Yes (needs O2) Hx Family Cancer: No Hx Family GI Disorders: No Hx Family Genitourinary Disorders: No Hx Family Endocrine Disorder: No Hx Family Musculoskeletal Disorders: No Hx Family Neuromuscular Disorders: No Hx Family Neurologic Disorders: No Hx Family HEENT Disorders: No Hx Family Autoimmune Disorders: No Hx Family Reproductive Disorders: No Hx Family Psychosocial Disorders: No Hx Family Medical Disorders: No Medications & Allergies ALPRAZolam [Xanax 0.5 MG Tablet] 0.5 mg PO DAILY 08/27/15 [History] Acidophilus 1 tab PO DAILY 08/27/15 [History] Buspirone 10 mg PO TID 08/27/15 [History] Calcium Carb/Vit D3/Minerals 600 mg PO DAILY 08/27/15 [History] Docosahexanoic Acid/Epa [Fish Oil Concentrate Softgel] 1,000 mg PO DAILY 08/27/15 [History] Gabapentin [Neurontin] 400 mg PO HS 08/27/15 [History] Glucosamine HCl/Chondr Briones A Na [Cvs Glucosamine-Chondr Caplet] 1 tab PO DAILY 08/27/15 [History] Losartan 100 mg PO DAILY 08/27/15 [History] Magnesium 250 mg PO DAILY 08/27/15 [History] Multivitamin [Multivitamins] 1 cap PO DAILY 08/27/15 [History] Potassium Chloride [K-Tab ER] 10 meq PO DAILY 08/27/15 [History] Pravastatin Sodium [Pravachol] 20 mg PO DAILY 08/27/15 [History] Promethazine HCl 50 mg PO TID 08/27/15 [History] Ropinirole HCl [Requip] 0.5 mg PO HS 08/27/15 [History] Temazepam [Restoril] 1 - 2 tab PO HS 08/27/15 [History] Trazodone HCl [TraZODone] 200 mg PO HS 08/27/15 [History] Venlafaxine HCl [Venlafaxine HCl ER] 75 mg PO DAILY 08/27/15 [History] Venlafaxine HCl [Venlafaxine HCl ER] 225 mg PO DAILY 08/27/15 [History] predniSONE [PredniSONE] 10 mg PO QID 08/27/15 [History] Acetaminophen [Tylenol] 500 mg PO Q6HR #12 tablet 09/15/18 [Rx] Lidocaine Patch [Lidoderm 5% patch] 1 each TP DAILY PRN #3 adh..patch 09/15/18 [Rx] Allergy/AdvReac Type Severity Reaction Status Date / Time ampicillin [From Polycillin] Allergy Rash Verified 11/30/18 00:23 methylprednisolone Allergy Rash Verified 11/30/18 00:23 NSAIDS (Non-Steroidal Allergy Rash Verified 11/30/18 00:23 Anti-Inflamma Belladonna Alkaloids AdvReac Swelling Verified 11/30/18 00:23 [From Butibel] of Lip/Tongue/Throat Butabarbital [From Butibel] AdvReac Swelling Verified 11/30/18 00:23 of Lip/Tongue/Throat Doxepin [From Sinequan] AdvReac Swelling Verified 11/30/18 00:23 of Lip/Tongue/Throat guaifenesin AdvReac Rash Verified 11/30/18 00:23 metoclopramide AdvReac See Verified 11/30/18 00:23 Comments omeprazole AdvReac Abdominal Verified 11/30/18 00:23 Pain prednisone AdvReac Nausea Verified 11/30/18 00:23 sulfamethoxazole AdvReac See Verified 11/30/18 00:23 [From Bactrim] Comments tramadol AdvReac See Verified 11/30/18 00:23 Comments trimethoprim [From Bactrim] AdvReac See Verified 11/30/18 00:23 Comments curtis AdvReac See Uncoded 11/30/18 00:23 Comments yuki AdvReac Swelling Uncoded 11/30/18 00:23 of Lip/Tongue/Throat Review of Systems Constitutional: Denies: fever, chills, weakness, weight change Eyes: Denies: eye pain, vision change Ears, Nose, Throat: Denies: ear pain, throat pain, dental pain, hearing loss, congestion Cardiovascular: Denies: chest pain, palpitations, dyspnea on exertion Respiratory: Denies: cough, dyspnea, wheezes Gastrointestinal: Denies: abdominal pain, nausea, vomiting, diarrhea, constipation Genitourinary female: Denies: urgency, dysuria, frequency, abnormal menses, dyspareunia Musculoskeletal: Reports: joint pain, myalgia Integumentary: Denies: rash, lesions, pruritus Neurological: Reports: other Endocrine: Denies: fatigue, heat or cold intolerance Hematologic/Lymphatic: Denies: easy bruising, lymphadenopathy Allergic/Immunologic: Denies: urticaria, itchy eyes Psychiatry Exam - Constitutional Vitals: Temp Pulse Resp BP Pulse Ox 98.6 F 88 16 155/94 98 12/04/18 03:25 12/04/18 07:52 12/04/18 08:45 12/04/18 08:45 12/04/18 07:52 General appearance: age & developmentally appropriate, well-groomed, well- nourished - Musculoskeletal Gait: other Station: other Strength & Tone: normal for patient - Psychiatric Patient Orientation: Yes Person, Yes Time, Yes Place Level of alertness: Alert Behavior: tearful, restless Psychomotor activity: Increased Eye Contact: Maintains Eye Contact Mood Description: Anxious Affect description: labile Speech Volume: Normal Speech pattern: normal rate, normal rhythm, normal tone, fluent, spontaneous Language & Vocabulary: consistent with education Thought Process: Tangential Thought Content: No Suicidal ideation, No Homicidal ideation, No Overt delusions Perceptual Disturbances: No Auditory hallucinations, No Visual hallucinations Attention Span Ability: Unable to Focus, Unable to Sustain Attention Memory Description: Immediate Intact, Recent Impaired, Remote Intact Patient Reliability: Questionable Historian Fund of knowledge: Yes abstraction ability Intelligence Estimate: Average Judgment: Fair Insight: Minimal Results - Labs Labs: Laboratory Last Values WBC 14.0 K/mcL (4.3-11.1) H 12/04/18 06:48 RBC 4.62 M/mcL (3.82-4.97) 12/04/18 06:48 Hgb 15.3 g/dL (11.5-15.4) 12/04/18 06:48 Hct 45.3 % (35.3-44.9) H 12/04/18 06:48 MCV 98.1 fL (83.0-100.0) 12/04/18 06:48 MCH 33.1 pg (28.0-33.3) 12/04/18 06:48 MCHC 33.8 g/dL (31.6-35.5) 12/04/18 06:48 RDW 12.6 % (11.5-14.5) 12/04/18 06:48 Plt Count 224 K/mcL (140-400) 12/04/18 06:48 MPV 10.4 fL (9.4-12.4) 12/04/18 06:48 Immature Gran % 0.4 % (0-4) 12/04/18 06:48 Seg Neutrophils % 68.8 % 12/04/18 06:48 22.7 % 12/04/18 06:48 7.4 % 12/04/18 06:48 0.4 % 12/04/18 06:48 0.3 % 12/04/18 06:48 9.6 K/mcL (1.6-8.9) H 12/04/18 06:48 3.2 K/mcL (0.6-4.6) 12/04/18 06:48 1.0 K/mcL (0.0-1.3) 12/04/18 06:48 0.1 K/mcL (0.0-0.6) 12/04/18 06:48 0.0 K/mcL (0.0-0.2) 12/04/18 06:48 ESR 24 mm/hr (0-15) H 12/04/18 06:48 Sodium 140 mEq/L (136-145) 12/04/18 06:48 Potassium 3.6 mEq/L (3.5-5.1) 12/04/18 06:48 Chloride 106 mEq/L (98-107) 12/04/18 06:48 Carbon Dioxide 23 mEq/L (23-29) 12/04/18 06:48 BUN 17 mg/dL (8-23) 12/04/18 06:48 0.85 mg/dL (0.60-1.20) 12/04/18 06:48 Est GFR ( Amer) > 60 (> 60) 12/04/18 06:48 Est GFR (Non-Af Amer) > 60 (> 60) 12/04/18 06:48 20 (6-26) 12/04/18 06:48 Glucose 100 mg/dL (70-105) 12/04/18 06:48 292 (280-300) 12/04/18 06:48 4.3 mg/dL (2.3-7.6) 12/04/18 06:48 Calcium 10.1 mg/dL (8.6-10.3) 12/04/18 06:48 124 Units/L (30-223) 12/04/18 06:48 < 5 mg/L (Less than 10) 12/04/18 06:48 Yellow (Yellow) 12/04/18 06:17 Clear (Clear) 12/04/18 06:17 5.5 pH Units (5.0-8.0) 12/04/18 06:17 Ur Specific [place] > 1.030 (1.010-1.025) H 12/04/18 06:17 30 mg/dL (Neg-Trace) H 12/04/18 06:17 Normal mg/dL (Normal) 12/04/18 06:17 Trace mg/dL (Negative) H 12/04/18 06:17 Negative (Negative) 12/04/18 06:17 Negative (Negative) 12/04/18 06:17 Small (Negative) H 12/04/18 06:17 Normal mg/dL (Normal) 12/04/18 06:17 Ur Leukocyte Esterase Negative (Negative) 12/04/18 06:17 5-15 per hpf (0-3) H 12/04/18 06:17 3-5 per hpf (0-3) H 12/04/18 06:17 Ur Squamous Epith Cells Many per lpf (None-Few) H 12/04/18 06:17 Few per hpf (None-Few) 12/04/18 06:17 Hyaline Casts Few per lpf (None-Few) 12/04/18 06:17 Ur Culture Indicated? YES (NO) A 12/04/18 06:17 - Impressions Impressions Hip MRI 12/04/18 08:20 IMPRESSION: No evidence of fracture. Bilateral hip osteoarthritis. D/ / 12/04/2018 11:19:46 Vincent Arroyo MD / janel Interpreting Provider: Vincent Arroyo MD Consult Discharge Plan - Plan Referrals: Ana Slaughter CNP [Primary Care Provider] -
[2018-12-04] MEDS ORDERED: Ketorolac 15 MG/ML VIAL IVP PRN (15:48)
[2018-12-04] MEDS: *HR* Heparin 5,000 UNIT/ML VIAL SQ SCH (17:49)
[2018-12-04] MEDS: ALPRAZolam 0.5 MG TABLET PO SCH (18:45)
[2018-12-04] MEDS: Venlafaxine XR (24 HR) 150 MG CAP.ER.24H PO SCH (21:33)
[2018-12-04] MEDS: traZODone 50 MG TABLET PO SCH (21:34)
[2018-12-04] MEDS: BUSPIRONE HCL 10 MG TABLET PO SCH (21:34)
[2018-12-04] MEDS: Fluticasone Propionate Nasal 50 MCG/SPRAY BOTTLE NS SCH (21:35)
[2018-12-05] MEDS: *HR* Heparin 5,000 UNIT/ML VIAL SQ SCH ×2 (05:45→16:57)
[2018-12-05 06:39] LABS: Basophils % 0.4 %; Eosinophils # 0.1 K/mcL (0.0-0.6); Eosinophils % 0.9 %; Hematocrit 44.6 % (35.3-44.9); Hemoglobin 14.5 g/dL (11.5-15.4); Immature Granulocytes % 0.4 % (0-4); Lymphocytes # 3.1 K/mcL (0.6-4.6); Lymphocytes % 28.3 %; Mean Corpuscular HGB Conc 32.5 g/dL (31.6-35.5); Mean Corpuscular Hemoglobin 32.2 pg (28.0-33.3); Mean Corpuscular Volume 98.9 fL (83.0-100.0); Monocytes # 0.9 K/mcL (0.0-1.3); Monocytes % 7.8 %; Neutrophils # 6.8 K/mcL (1.6-8.9); Platelet Count 231 K/mcL (140-400); Red Blood Count 4.51 M/mcL (3.82-4.97); Red Cell Distribution Width 12.7 % (11.5-14.5); Segmented Neutrophils % 62.2 %
[2018-12-05 06:54] LABS: BUN/Creatinine Ratio 21 (6-26); Blood Urea Nitrogen 14 mg/dL (8-23); Carbon Dioxide 27 mEq/L (23-29); Chloride 104 mEq/L (98-107); Glucose 127 mg/dL (70-105); Magnesium 2.3 mg/dL (1.6-2.6); Osmolality,Calculated 290 (280-300); Phosphorous 3.6 mg/dL (2.7-4.5); Potassium 4.2 mEq/L (3.5-5.1); Sodium 139 mEq/L (136-145); eGFR For Non-African Americans > 60 (> 60)
[2018-12-05] MEDS: Multivit/Ca/Min/Fe/FA 1 TAB TABLET PO SCH (08:08)
[2018-12-05] MEDS: ALPRAZolam 0.5 MG TABLET PO SCH (08:08)
[2018-12-05] MEDS: BUSPIRONE HCL 10 MG TABLET PO SCH ×2 (08:08→20:47)
[2018-12-05] MEDS: Loratadine 10 MG TABLET PO SCH (08:08)
[2018-12-05] MEDS: Venlafaxine XR (24 HR) 150 MG CAP.ER.24H PO SCH ×2 (08:09→20:47)
[2018-12-05] MEDS: Fluticasone Propionate Nasal 50 MCG/SPRAY BOTTLE NS SCH ×2 (08:09→20:48)
--- NOTE | 2018-12-05 11:39 | Internal Med Progress Note ---
Hospitalist Progress Note - Encounter Date of Encounter: 12/05/18 Time of Encounter: 13:07 - Subjective Interval History: No acute events. Patient states right groin pain has suddenly left and she doesn't know why. She denies any decreased ROM, sensation is normal. - Exam Vitals: Temp Pulse Resp BP Pulse Ox 97.6 F 76 18 122/77 95 12/05/18 11:15 12/05/18 11:15 12/05/18 11:15 12/05/18 11:15 12/05/18 11:15 Exam: Gen: NAD, cooperative with exam Head: NC/AT ENT: MM slightly dry Neck: no LA CVS: RRR Lungs: CTAB Abd: soft, NT, ND GI: deferred Ext: no edema of extremities. - Assessment and Plan (1) Left hip pain Current Visit: Yes Status: Acute Assessment and Plan: Pt has left hip pain of unclear etiology. Happened while exercising on a bike at the [employer]. has history of fibromyalgia and arthritis CT hip unremarkable. MRI is negative outside of osteoarthritis. Lives by herself and is an unsafe discharge home by herself - Await PT/OT recs (2) Leukocytosis Current Visit: Yes Status: Acute Assessment and Plan: No clear source of infection. Afebrile. Chest x ray negative Resolved. (3) Hypertension Current Visit: Yes Status: Acute Assessment and Plan: Continue home meds with losartan (4) DVT prophylaxis Current Visit: Yes Status: Acute Assessment and Plan: heparin sc (5) Psychiatric disorder Current Visit: Yes Status: Acute Assessment and Plan: Patient has tangential speech and is intermittently confused. Cannot tell me who the president is and gets excited inappropriately Unclear psych history. Psychiatry states possible delirium, recommends Haldol as needed. Currently patient is oriented and cooperative and is not needed. She is on excessive medications that should be used in caution for her age. Will decrease oxybutinin to once daily for now and give gentle IV fluid hydration as she still appears dry. - Time Spent with Patient Total time spent is greater than 50% in coordination of care (as documented) at patient's floor/unit and/or counseling patient: Internal Medicine: Result - Labs CBC & Chem 7: 12/05/18 05:39 12/05/18 05:39 Labs: Short CBC 12/05/18 Range/Units 05:39 WBC 11.0 (4.3-11.1) K/mcL Hgb 14.5 (11.5-15.4) g/dL Hct 44.6 (35.3-44.9) % Plt Count 231 (140-400) K/mcL Neutrophils # 6.8 (1.6-8.9) K/mcL BMP 12/05/18 05:39 Sodium 139 Potassium 4.2 Chloride 104 Carbon Dioxide 27 BUN 14 Creatinine 0.67 Glucose 127 H Calcium 10.0 - Impressions Impressions Chest X-Ray 12/04/18 10:35 IMPRESSION: No acute cardiopulmonary disease. D/ / 12/04/2018 14:21:27 Noah Curry MD / janel Interpreting Provider: Noah Curry MD Consult Discharge Plan - Plan Referrals: Ana Slaughter, PREFLIGHT INSPECTOR [Primary Care Provider] - (2) Leukocytosis Qualifiers: Qualified Code(s): D72.829 - Elevated white blood cell count, unspecified (3) Hypertension Qualifiers: Qualified Code(s): I10 - Essential (primary) hypertension
[2018-12-05] MEDS ORDERED: Ringers Solution, Lactated 500 ML IVC SCH (13:15)
[2018-12-05] MEDS: traZODone 50 MG TABLET PO SCH (20:47)
[2018-12-06] MEDS: *HR* Heparin 5,000 UNIT/ML VIAL SQ SCH ×2 (05:58→18:05)
[2018-12-06] MEDS: Loratadine 10 MG TABLET PO SCH (09:05)
[2018-12-06] MEDS: ALPRAZolam 0.5 MG TABLET PO SCH (09:05)
[2018-12-06] MEDS: Venlafaxine XR (24 HR) 150 MG CAP.ER.24H PO SCH ×2 (09:05→20:10)
[2018-12-06] MEDS: Multivit/Ca/Min/Fe/FA 1 TAB TABLET PO SCH (09:05)
[2018-12-06] MEDS: BUSPIRONE HCL 10 MG TABLET PO SCH ×2 (09:05→20:10)
[2018-12-06] MEDS: Fluticasone Propionate Nasal 50 MCG/SPRAY BOTTLE NS SCH ×2 (10:36→20:11)
[2018-12-06] MEDS ORDERED: Acetaminophen 325 MG TABLET PO PRN (12:35)
[2018-12-06] MEDS ORDERED: Ketorolac 15 MG/ML VIAL IVP PRN (12:36)
[2018-12-06] MEDS ORDERED: traMADol 50 MG TABLET PO PRN (12:36)
--- NOTE | 2018-12-06 13:25 | Internal Med Progress Note ---
<David Davies - Last Filed: 12/06/18 15:32> Hospitalist Progress Note - Encounter Date of Encounter: 12/06/18 Time of Encounter: 13:25 - Subjective Interval History: Patient was seen and examined at bedside this morning. She states that her pain is much improved today from previous. She denies any numbness, tingling, fev ers, chills, chest pain, shortness of breath. Her tenderness to palpation is still present but she might improve. She states she has been walking and has spoken with physical therapy. - Exam Vitals: Temp Pulse Resp BP Pulse Ox 98.3 F 68 16 137/78 94 12/06/18 11:38 12/06/18 11:38 12/06/18 11:38 12/06/18 11:38 12/06/18 11:38 Exam: Gen.: Vitals noted. No acute distress. AAOx3, resting comfortably in bed. HEENT: PERRL/EOMI, oropharynx clear, Normocephalic, atraumatic, MMM Cardiac: RRR, no murmur, +S1/S2, No BLE edema Pulmonary: CTA bilaterally, no wheezes, rales or rhonchi, equal chest expansion, unlabored breathing Abdomen: soft, nontender, BS noted, no guarding, no palpable HSM Back: Nontender throughout. Skin: warm and dry, no visible lesions. MSK: ROM intact but diminished secondary to pain, no joint swelling noted, gait no assessed while in bed. Non tender calf or clubbing. Tenderness to palpation of anterior tibia which is consistent with baseline. Neuro: A&Ox3, moves all extremities, no focal deficits, sensation intact Psych: Appropriate mood and behavior, AOx3 - Assessment and Plan (1) Left hip pain Current Visit: Yes Status: Acute Assessment and Plan: Pt has left hip pain of unclear etiology. Happened while exercising on a bike at the [facility]. has history of fibromyalgia and arthritis CT hip unremarkable. MRI is negative outside of osteoarthritis. Lives by herself and is an unsafe discharge home by herself PT is recommending senior care facility for discharge. Patient is agreeable for rehabilitation. Continue supportive care Social work consult that pending placement (2) Leukocytosis Current Visit: Yes Status: Acute Assessment and Plan: Resolved Elevated admission at 14.0, has down trended to 11.0 No clear source of infection. Afebrile. Chest x ray negative - We will continue to monitor for now, no antibiotics (3) Hypertension Current Visit: Yes Status: Chronic Assessment and Plan: Continue home meds with losartan (4) DVT prophylaxis Current Visit: Yes Status: Acute Assessment and Plan: heparin sc (5) Psychiatric disorder Current Visit: Yes Status: Acute Assessment and Plan: The patient may have a potential delirium and has been evaluated by psychiatry who recommends Haldol as needed. This morning patient is oriented and cooperative. Oxybutynin was decreased for concerns of excessive polypharmacy. We will continue to monitor for now - Time Spent with Patient Total time spent is greater than 50% in coordination of care (as documented) at patient's floor/unit and/or counseling patient: Internal Medicine: Result - Labs CBC & Chem 7: 12/05/18 05:39 12/05/18 05:39 - Impressions Impressions Hip MRI 12/04/18 08:20 IMPRESSION: No evidence of fracture. Bilateral hip osteoarthritis. D/ / 12/04/2018 11:19:46 Vincent Arroyo MD / janel Interpreting Provider: Vincent Arroyo MD Consult Discharge Plan - Plan Referrals: Ana Slaughter, WATER RESOURCES PROJECT MANAGER [Primary Care Provider] - <Sebas Slater - Last Filed: 12/06/18 17:48> Hospitalist Progress Note - Encounter Date of Encounter: 12/06/18 - Exam Vitals: Temp Pulse Resp BP Pulse Ox 98.2 F 79 18 160/90 95 12/06/18 15:49 12/06/18 15:49 12/06/18 15:49 12/06/18 15:49 12/06/18 15:56 - Assessment and Plan (1) Left hip pain Current Visit: Yes Status: Acute (2) Leukocytosis Current Visit: Yes Status: Acute (3) Hypertension Current Visit: Yes Status: Chronic (4) DVT prophylaxis Current Visit: Yes Status: Acute (5) Psychiatric disorder Current Visit: Yes Status: Acute - Time Spent with Patient Total time spent is greater than 50% in coordination of care (as documented) at patient's floor/unit and/or counseling patient: Internal Medicine: Result - Labs CBC & Chem 7: 12/05/18 05:39 12/05/18 05:39 - Attending Attestation I examined this patient and my medical decision-making was reviewed with the Resident Physician. I agree with the documented findings, disposition and treatment plan as described except to the extent set forth below. <David Davies - Last Filed: 12/06/18 15:32> (2) Leukocytosis Qualifiers: Qualified Code(s): D72.829 - Elevated white blood cell count, unspecified (3) Hypertension Qualifiers: Hypertension type: essential hypertension Qualified Code(s): I10 - Essential (primary) hypertension <Sebas Slater - Last Filed: 12/06/18 17:48> (2) Leukocytosis Qualifiers: Qualified Code(s): D72.829 - Elevated white blood cell count, unspecified (3) Hypertension Qualifiers: Hypertension type: essential hypertension Qualified Code(s): I10 - Essential (primary) hypertension
[2018-12-06] MEDS: traZODone 50 MG TABLET PO SCH (20:10)
[2018-12-07] MEDS: *HR* Heparin 5,000 UNIT/ML VIAL SQ SCH (04:56)
--- NOTE | 2018-12-07 07:55 | Internal Med Progress Note ---
Hospitalist Progress Note - Encounter Date of Encounter: 12/07/18 - Exam Vitals: Temp Pulse Resp BP Pulse Ox 98.4 F 87 16 160/84 95 12/07/18 07:40 12/07/18 07:40 12/07/18 07:40 12/07/18 07:40 12/07/18 07:40 - Assessment and Plan (1) Left hip pain Current Visit: Yes Status: Acute (2) Leukocytosis Current Visit: Yes Status: Acute (3) Hypertension Current Visit: Yes Status: Chronic (4) Psychiatric disorder Current Visit: Yes Status: Acute (5) DVT prophylaxis Current Visit: Yes Status: Acute - Time Spent with Patient Total time spent is greater than 50% in coordination of care (as documented) at patient's floor/unit and/or counseling patient: Internal Medicine: Result - Labs CBC & Chem 7: 12/05/18 05:39 12/05/18 05:39 Consult Discharge Plan - Plan Referrals: Ana Slaughter, OFFICE MACHINE TECHNICIAN [Primary Care Provider] - (2) Leukocytosis Qualifiers: Qualified Code(s): D72.829 - Elevated white blood cell count, unspecified (3) Hypertension Qualifiers: Hypertension type: essential hypertension Qualified Code(s): I10 - Essential (primary) hypertension
[2018-12-07] MEDS: ALPRAZolam 0.5 MG TABLET PO SCH (08:03)
[2018-12-07] MEDS: Multivit/Ca/Min/Fe/FA 1 TAB TABLET PO SCH (08:03)
[2018-12-07] MEDS: BUSPIRONE HCL 10 MG TABLET PO SCH (08:03)
[2018-12-07] MEDS: Venlafaxine XR (24 HR) 150 MG CAP.ER.24H PO SCH (08:03)
[2018-12-07] MEDS: Loratadine 10 MG TABLET PO SCH (08:03)
[2018-12-07 09:51] LABS: Amphetamine Screen,Urine Negative ng/mL (Cutoff=1000); Barbiturate Screen,Urine Negative ng/mL (Cutoff=200); Benzodiazepines Screen,Urine Positive ng/mL (Cutoff=200); Cannabinoid Screen,Urine Negative ng/mL (Cutoff = 50); Cocaine Screen,Urine Negative ng/mL (Cutoff= 300); Opiate Screen,Urine Negative ng/mL (Cutoff=300); Phencyclidine Screen,Urine Negative ng/mL (Cutoff=25)
--- NOTE | 2018-12-07 13:38 | Discharge Summary ---
<David Davies - Last Filed: 12/07/18 14:15> - NOTES TO OUTPATIENT PROVIDER Notes to Outpatient Provider: Presented with hip and groin pain likely related to osteoarthritis as well as fibromyalgia. Tolerating movement well now. PT/OT recommending SNF for rehab. Follow up blood pressure as outpatient. Date of Encounter: 12/07/18 Time of Encounter: 09:15 - Discharge Diagnosis (1) Left hip pain Priority: Primary Status: Acute (2) Leukocytosis Priority: Secondary Status: Acute Qualifiers: Qualified Code(s): D72.829 - Elevated white blood cell count, unspecified (3) Hypertension Priority: Secondary Status: Chronic Qualifiers: Hypertension type: essential hypertension Qualified Code(s): I10 - Essential (primary) hypertension (4) DVT prophylaxis Priority: Secondary Status: Acute (5) Psychiatric disorder Priority: Secondary Status: Suspected Hospital course: Ms. Sanabria is a 73 year old female with past medical history of arthritis, fibromyalgia percent with mild left hip pain 1 week. Pain started out after exercising on a stationary bicycle and she has since been unable to walk. She had been seen in the emergency department multiple times without any relief of her symptoms over this week. Upon presentation to the emergency room, vital signs were significant for heart rate of 124, respiratory rate of 21 and blood pressure 152/86. Labs were obtained and were significant for a mild leukocytosis of 14.0, ESR 24, negative CRP, urinalysis which appears contaminated and had no culture growth as well as UDS positive for home benzodiazepines. She did receive a MRI of the hip which showed no evidence of fracture but did show bilateral hip osteoarthritis. Patient was treated conservatively. She was evaluated by physical and occupational therapy were recommending senior care facility placement for rehabilitation. Patient is agreeable to this. She states that her pain is much better compared to admission and she is tolerating her therapy well. She is regaining some of her strength and range of motion. Laboratory results have resolved back to baseline levels. She will be discharged to senior care facility in stable medical condition and instructed to follow up with her primary care physician. Also of note, her blood pressure has been increased during stay despite her home metoprolol and losartan. She will be discharged home on home medications with further adjustments made by her primary care physician. All questions were answered Discharge discussed with: patient, social work, case management - Time Spent with Patient Total time spent providing and/or coordinating discharge services: - Discharge Medications Prescriptions: New Losartan [Cozaar] 100 mg PO DAILY #40 tablet Metoprolol [Lopressor] 25 mg PO BID #10 tablet Continued Potassium Chloride [K-Tab ER] 10 meq PO DAILY Pravastatin Sodium [Pravachol] 20 mg PO DAILY Multivitamin [Multivitamins] 1 cap PO DAILY Buspirone HCl [Buspar] 30 mg PO BID Cetirizine HCl [24Hour Allergy] 10 mg PO DAILY Fluticasone Propionate Nasal [Flonase] 1 spr NS BID Sertraline [Zoloft] 100 mg PO DAILY Solifenacin Succinate [Vesicare] 5 mg PO DAILY Trazodone HCl 200 mg PO HS Venlafaxine HCl [Venlafaxine HCl ER] 150 mg PO BID ALPRAZolam [Xanax 0.5 MG Tablet] 0.5 mg PO DAILY 3 Days #3 tablet Discontinued Metoprolol [Lopressor] 25 mg PO BID Home Medications: Multivitamin [Multivitamins] 1 cap PO DAILY 08/27/15 [History] Potassium Chloride [K-Tab ER] 10 meq PO DAILY 08/27/15 [History] Pravastatin Sodium [Pravachol] 20 mg PO DAILY 08/27/15 [History] Buspirone HCl [Buspar] 30 mg PO BID 12/04/18 [History] Cetirizine HCl [24Hour Allergy] 10 mg PO DAILY 12/04/18 [History] Fluticasone Propionate Nasal [Flonase] 1 spr NS BID 12/04/18 [History] Sertraline [Zoloft] 100 mg PO DAILY 12/04/18 [History] Solifenacin Succinate [Vesicare] 5 mg PO DAILY 12/04/18 [History] Trazodone HCl 200 mg PO HS 12/04/18 [History] Venlafaxine HCl [Venlafaxine HCl ER] 150 mg PO BID 12/04/18 [History] ALPRAZolam [Xanax 0.5 MG Tablet] 0.5 mg PO DAILY 3 Days #3 tablet 12/07/18 [Rx] Losartan [Cozaar] 100 mg PO DAILY #40 tablet 12/07/18 [Rx] Metoprolol [Lopressor] 25 mg PO BID #10 tablet 12/07/18 [Rx] Allergies/Adverse Reactions: Allergy/AdvReac Type Severity Reaction Status Date / Time ampicillin [From Polycillin] Allergy Rash Verified 11/30/18 00:23 methylprednisolone Allergy Rash Verified 11/30/18 00:23 NSAIDS (Non-Steroidal Allergy Rash Verified 11/30/18 00:23 Anti-Inflamma Belladonna Alkaloids AdvReac Swelling Verified 11/30/18 00:23 [From Butibel] of Lip/Tongue/Throat Butabarbital [From Butibel] AdvReac Swelling Verified 11/30/18 00:23 of Lip/Tongue/Throat Doxepin [From Sinequan] AdvReac Swelling Verified 11/30/18 00:23 of Lip/Tongue/Throat guaifenesin AdvReac Rash Verified 11/30/18 00:23 metoclopramide AdvReac See Verified 11/30/18 00:23 Comments omeprazole AdvReac Abdominal Verified 11/30/18 00:23 Pain prednisone AdvReac Nausea Verified 11/30/18 00:23 sulfamethoxazole AdvReac See Verified 11/30/18 00:23 [From Bactrim] Comments trimethoprim [From Bactrim] AdvReac See Verified 11/30/18 00:23 Comments octicar AdvReac See Uncoded 11/30/18 00:23 Comments travil AdvReac Swelling Uncoded 11/30/18 00:23 of Lip/Tongue/Throat Date of admission: 12/04/18 08:30 Primary care physician: Ana Slaughter CNP Consults: 12/04/18 08:53 Consult to Physical Therapy [CONS] Routine Comment: Evaluate, develop and implement POC Reason for Consult: weakness, left hip pain Does patient have active BEDREST order?: No Is patient medically & hemodynamically stable?: Yes Patient assessed for mobility or mobilized this visit?: No 12/04/18 08:54 Consult to Lead Ingot Molder [CONS] Routine Reason for SW Consult: unsafe living condition 12/04/18 10:28 Consult to Pastoral Services [CONS] Routine Comment: 12/04/18 10:30 Consult to Psychiatry [CONS] Routine Consulting Provider: Psychiatry Maryam Reason consult: Psychosis 12/06/18 09:06 Consult to Occupational Therapy [CONS] Routine Comment: Evaluate, develop and implement POC Reason for Consult: SAFETY CONCERNS Does patient have active BEDREST order?: No Is patient medically & hemodynamically stable?: No Discharging clinician: David Davies Anticipated date of discharge: 12/07/18 - Constitutional Vitals: Temp Pulse Resp BP Pulse Ox 98.1 F 64 17 179/82 94 12/07/18 11:33 12/07/18 11:33 12/07/18 11:33 12/07/18 11:33 12/07/18 11:33 Exam: Gen.: Vitals noted. No acute distress. AAOx3, resting comfortably in bed. HEENT: PERRL/EOMI, oropharynx clear, Normocephalic, atraumatic, MMM Cardiac: RRR, no murmur, +S1/S2, No BLE edema Pulmonary: CTA bilaterally, no wheezes, rales or rhonchi, equal chest expansion, unlabored breathing Abdomen: soft, nontender, BS noted, no guarding, no palpable HSM Back: Nontender throughout. Skin: warm and dry, no visible lesions. MSK: ROM intact but diminished secondary to pain, no joint swelling noted, gait no assessed while in bed. Non tender calf or clubbing. Tenderness to palpation of anterior tibia which is consistent with baseline. Neuro: A&Ox3, moves all extremities, no focal deficits, sensation intact Psych: Appropriate mood and behavior, AOx3 - Patient Status Disposition: Transfer SNF Condition: Fair Functional capacity at discharge: uses cane/walker Overall status at discharge: patient is progressing back to baseline - Discharge Instructions Follow Up With: Ana Slaughter LOCKER ATTENDANT [Primary Care Provider] - - Diet and Activity Activity: increase activity as tolerated, return to work once cleared by your PCP/specialist, resume usual activities as tolerated Diet: advance to your usual diet, low salt diet <Sebas Slater - Last Filed: 12/07/18 17:43> Date of Encounter: 12/07/18 - Discharge Diagnosis (1) Left hip pain Status: Acute (2) Leukocytosis Status: Acute Qualifiers: Qualified Code(s): D72.829 - Elevated white blood cell count, unspecified (3) Hypertension Status: Chronic Qualifiers: Hypertension type: essential hypertension Qualified Code(s): I10 - Essential (primary) hypertension (4) DVT prophylaxis Status: Acute (5) Psychiatric disorder Status: Suspected Hospital course: Ms. Sanabria is a 73 year old female - Time Spent with Patient Total time spent providing and/or coordinating discharge services: Date of admission: 12/04/18 08:30 Primary care physician: Ana Slaughter CNP Consults: 12/04/18 08:53 Consult to Physical Therapy [CONS] Routine Comment: Evaluate, develop and implement POC Reason for Consult: weakness, left hip pain Does patient have active BEDREST order?: No Is patient medically & hemodynamically stable?: Yes Patient assessed for mobility or mobilized this visit?: No 12/04/18 08:54 Consult to Lead Ingot Molder [CONS] Routine Reason for SW Consult: unsafe living condition 12/04/18 10:28 Consult to Pastoral Services [CONS] Routine Comment: 12/04/18 10:30 Consult to Psychiatry [CONS] Routine Consulting Provider: Psychiatry [place] Reason consult: Psychosis 12/06/18 09:06 Consult to Occupational Therapy [CONS] Routine Comment: Evaluate, develop and implement POC Reason for Consult: SAFETY CONCERNS Does patient have active BEDREST order?: No Is patient medically & hemodynamically stable?: No - Constitutional Vitals: Temp Pulse Resp BP Pulse Ox 98.6 F 91 16 145/67 93 12/07/18 16:24 12/07/18 16:24 12/07/18 16:24 12/07/18 16:24 12/07/18 16:24 - Attending Attestation I examined this patient and my medical decision-making was reviewed with the Resident Physician. I agree with the documented findings, disposition and treatment plan as described except to the extent set forth below.
--- NOTE | 2018-12-07 13:43 | Physician Discharge Referral ---
ExtendedCare Referral Info Provider in Charge after Transfer: PCP Institutional Level of Care: Skilled - Diagnosis (1) Left hip pain Priority: Primary Status: Acute (2) Leukocytosis Priority: Secondary Status: Acute (3) Hypertension Priority: Secondary Status: Chronic (4) Psychiatric disorder Priority: Secondary Status: Suspected (5) DVT prophylaxis Priority: Secondary Status: Acute - Transfer Medications Prescriptions: Losartan [Cozaar] 100 mg PO DAILY #40 tablet Metoprolol [Lopressor] 25 mg PO BID #10 tablet Home Medications: ALPRAZolam [Xanax 0.5 MG Tablet] 0.5 mg PO DAILY 08/27/15 [History] Multivitamin [Multivitamins] 1 cap PO DAILY 08/27/15 [History] Potassium Chloride [K-Tab ER] 10 meq PO DAILY 08/27/15 [History] Pravastatin Sodium [Pravachol] 20 mg PO DAILY 08/27/15 [History] Buspirone HCl [Buspar] 30 mg PO BID 12/04/18 [History] Cetirizine HCl [24Hour Allergy] 10 mg PO DAILY 12/04/18 [History] Fluticasone Propionate Nasal [Flonase] 1 spr NS BID 12/04/18 [History] Sertraline [Zoloft] 100 mg PO DAILY 12/04/18 [History] Solifenacin Succinate [Vesicare] 5 mg PO DAILY 12/04/18 [History] Trazodone HCl 200 mg PO HS 12/04/18 [History] Venlafaxine HCl [Venlafaxine HCl ER] 150 mg PO BID 12/04/18 [History] Losartan [Cozaar] 100 mg PO DAILY #40 tablet 12/07/18 [Rx] Metoprolol [Lopressor] 25 mg PO BID #10 tablet 12/07/18 [Rx] Allergies/Adverse Reactions: Allergy/AdvReac Type Severity Reaction Status Date / Time ampicillin [From Polycillin] Allergy Rash Verified 11/30/18 00:23 methylprednisolone Allergy Rash Verified 11/30/18 00:23 NSAIDS (Non-Steroidal Allergy Rash Verified 11/30/18 00:23 Anti-Inflamma Belladonna Alkaloids AdvReac Swelling Verified 11/30/18 00:23 [From Butibel] of Lip/Tongue/Throat Butabarbital [From Butibel] AdvReac Swelling Verified 11/30/18 00:23 of Lip/Tongue/Throat Doxepin [From Sinequan] AdvReac Swelling Verified 11/30/18 00:23 of Lip/Tongue/Throat guaifenesin AdvReac Rash Verified 11/30/18 00:23 metoclopramide AdvReac See Verified 11/30/18 00:23 Comments omeprazole AdvReac Abdominal Verified 11/30/18 00:23 Pain prednisone AdvReac Nausea Verified 11/30/18 00:23 sulfamethoxazole AdvReac See Verified 11/30/18 00:23 [From Bactrim] Comments trimethoprim [From Bactrim] AdvReac See Verified 11/30/18 00:23 Comments octicar AdvReac See Uncoded 11/30/18 00:23 Comments travil AdvReac Swelling Uncoded 11/30/18 00:23 of Lip/Tongue/Throat - Respiratory Orders Smoking Cessation: Smoking cessation has been advised. For more information, call the [place] Tobacco Quit Line at 5-441-BMJM-NOW. - Advance Directives Code Status: Full Code - Rehabiliation Orders Rehab Potential: Fair Rehab Orders: Evaluation for Physical Therapy, Evaluation for Occupational Therapy - Diet Orders Cardiac CERTIFICATION: I certify that the transfer of the above named patient to an Extended Care Facility is necessary for the continuing treatment of the diagnosis listed. The above information is true and accurate reflection of patient's current condition. Confidential - Redisclosure prohibited without a patient's written consent.
[2018-12-07] MEDS: Fluticasone Propionate Nasal 50 MCG/SPRAY BOTTLE NS SCH (14:58)
[2018-12-07 16:25] VITALS: BP 145/67
== END 2018-12-07 17:23 ==
LOC: EMEROOARM 03:19 → 3NENU 03:19 → SUATTDRO 08:30 → 3NENU 08:39 → 2ANU 12-06 10:37
PROVIDERS: ADMIT Student in an Organized Health Care Education/Training Program; ATTEND Student in an Organized Health Care Education/Training Program

== ENCOUNTER 2019-04-18 18:49 | Observation (INO) ==
--- NOTE | 2019-04-18 19:10 | Emergency Department Note ---
Disposition Clinical Impression: Hypertensive urgency Disposition: Admitted As Inpatient Condition: Fair Referrals: Ana Slaughter CNP [Primary Care Provider] - Forms: ED Satisfaction Letter Time of Disposition: 22:07 Headache HPI - General Chief Complaint: ED Headache Stated Complaint: high bp/ headache Time Seen by Provider: 04/18/19 19:02 Source: patient, EMS Mode of arrival: EMS Limitations: no limitations Nursing Notes Reviewed: Yes Vital Signs Reviewed: Yes - History of Present Illness HPI Narrative: 74-year-old female past medical history of hypertension presenting for one week of elevated blood pressures. Patient has been on metoprolol tartrate 25 mg twice a day for the management of high blood pressure which she states is normally within normal limits except for the last week which she does been uncontrolled. Patient notes that she had a fall last week at home landing on her right buttocks and has had some pain and soreness since this time but denies any other injury during this event. Patient states that she has been taking her medication as prescribed but notes that during the course the past week that she has had headaches, lightheadedness/dizziness, intermittent chest pain, vision changes associated with hypertension. Patient has no other concerns or complaints that time. Upon my initial evaluation, my general impression is that the patient is awake, alert, oriented, engaged to conversation and answering questions appropriately. There are no overt lateralizing signs, the patient is in no acute distress; their skin appears to be normal in color, they are not pale, not cyanotic, and not diaphoretic, they are sitting up in hospital bed interacting appropriately with environment. Pt Subjective Complaint: headache Onset (ago): day(s) Pain Severity: severe Pain Scale: 8 Associated symptoms: Reports: vision changes, weakness - Related Data Home Medications Medication Instructions Recorded Confirmed Multivitamin [Multivitamins] 1 cap PO DAILY 08/27/15 12/04/18 Potassium Chloride [K-Tab ER] 10 meq PO DAILY 08/27/15 12/04/18 Pravastatin Sodium [Pravachol] 20 mg PO DAILY 08/27/15 12/04/18 Buspirone HCl [Buspar] 30 mg PO BID 12/04/18 12/04/18 Cetirizine HCl [24Hour Allergy] 10 mg PO DAILY 12/04/18 12/04/18 Fluticasone Propionate Nasal 1 spr NS BID 12/04/18 12/04/18 [Flonase] Sertraline [Zoloft] 100 mg PO DAILY 12/04/18 12/04/18 Solifenacin Succinate [Vesicare] 5 mg PO DAILY 12/04/18 12/04/18 Trazodone HCl 200 mg PO HS 12/04/18 12/04/18 Venlafaxine HCl [Venlafaxine HCl 150 mg PO BID 12/04/18 12/04/18 ER] Previous Rx's Medication Instructions Recorded Losartan [Cozaar] 100 mg PO DAILY #40 tablet 12/07/18 Metoprolol [Lopressor] 25 mg PO BID #10 tablet 12/07/18 Allergies Allergy/AdvReac Type Severity Reaction Status Date / Time ampicillin [From Polycillin] Allergy Rash Verified 11/30/18 00:23 methylprednisolone Allergy Rash Verified 11/30/18 00:23 NSAIDS (Non-Steroidal Allergy Rash Verified 11/30/18 00:23 Anti-Inflamma Belladonna Alkaloids AdvReac Swelling Verified 11/30/18 00:23 [From Butibel] of Lip/Tongue/Throat Butabarbital [From Butibel] AdvReac Swelling Verified 11/30/18 00:23 of Lip/Tongue/Throat Doxepin [From Sinequan] AdvReac Swelling Verified 11/30/18 00:23 of Lip/Tongue/Throat guaifenesin AdvReac Rash Verified 11/30/18 00:23 metoclopramide AdvReac See Verified 11/30/18 00:23 Comments omeprazole AdvReac Abdominal Verified 11/30/18 00:23 Pain prednisone AdvReac Nausea Verified 11/30/18 00:23 sulfamethoxazole AdvReac See Verified 11/30/18 00:23 [From Bactrim] Comments trimethoprim [From Bactrim] AdvReac See Verified 11/30/18 00:23 Comments octicar AdvReac See Uncoded 11/30/18 00:23 Comments travil AdvReac Swelling Uncoded 11/30/18 00:23 of Lip/Tongue/Throat Review of Systems: *See History of Present Illness for more detail Constitutional: Denies: fever, chills HEENT: Admits to vision change Cardiovascular: Denies: chest pain Respiratory: Denies: dyspnea, cough, hemoptysis Gastrointestinal: Denies: abdominal pain, nausea, vomiting, diarrhea, constipation, hematemesis, melena, hematochezia Genitourinary: Denies: hematuria Musculoskeletal: Admits: back pain, neck pain Integumentary: Denies: rash Neurological: Admits: headache, weakness, lightheadedness/dizziness, denies: numbness, paresthesias, difficulty with ambulation. Endocrine: Admits: fatigue All systems ED: reviewed and negative except as stated. Review of Systems: As Per HPI Headache PMH - Past Medical History Medical history: Reports: arthritis, asthma, fibromyalgia, GERD, hyperlipidemia, hypertension, RA Psychiatric history: Reports: depression - Social History Smoking Status: Never smoker Alcohol use: Reports: none Drug use: Reports: none Physical Exam Constitutional: No acute distress, [id number], engaged to conversation, speech is fluid, answers questions appropriately Neuro: GCS 15, no overt focal neurological deficits Head: Atraumatic, normocephalic Eyes: Pupils equal, round and reactive to light, no scleral icterus, no conjunctival injection Neck: Trachea midline without deviation. Anterior neck is supple without swelling. *Chest: Symmetric chest wall rise *Heart: Cardiac rhythm and rate are regular with S1 and S2 , no S3 or S4 appreciated, no murmurs, gallops, rubs, or clicks. *Lungs: Lungs are clear to auscultation bilaterally, without accessory muscle use or prolonged expiratory phase. No wheezes, rhonchi or stridor appreciated. Abdomen: Abdomen is flat, soft to palpation, normal bowel sounds. No abdominal bruit auscultated. Non-distended, non-rigid, no organomegaly, no ascites appreciated. No pulsatile mass, no tenderness or guarding to palpation in all four quadrants, no rebound Extremities: Normal capillary refill without evidence of pedal edema, joint swelling or erythema. Pulses/motor/sensory intact in all 4 extremities. Psychiatric exam: Patient displays a normal affect and mood for the environment. No overt signs of hallucination. Integumentary: Patient has a large circular bruise noted to the right hip area, bruising noted to the lower extremities after fall 1 week ago. Patient states she has been ambulatory without difficulty during the past week. Skin is otherwise warm, dry, intact, normal color. No rash, cyanosis, diaphoresis, erythema, or pallor - General Limitations: no limitations General appearance: alert, in no apparent distress Course Course Narrative: CT scan of the head and brain without contrast, x-ray cervical/thoracic/lumbar spine. CBC, BMP, hepatic panel, coags, troponin, BNP EKG/old EKG Final for pain nicardipine drip for hypertension. Vital Signs Temperature 98.6 F 04/18/19 18:52 Pulse Rate 81 04/18/19 18:52 Respiratory Rate 15 04/18/19 18:52 Blood Pressure 222/113 04/18/19 18:52 O2 Sat by Pulse Oximetry 98 04/18/19 18:52 Temperature 98.6 F 04/18/19 18:52 Pulse Rate 87 04/18/19 22:02 Respiratory Rate 16 04/18/19 22:02 Blood Pressure 177/92 04/18/19 22:02 O2 Sat by Pulse Oximetry 97 04/18/19 22:02 Oxygen Delivery Oxygen Delivery Room Air Headache - MDM Narrative Medical decision making narrative: The patients EKG, imaging, and laboratory results show no acute pathology. Evaluation results were discussed with the patient at bedside. Patient was given time to ask questions and state concerns. The patient states that they have had significant relief of their symptoms with our management here in the ED. The patient will be admitted to the hospitalist medicine service for further evaluation and management of hypertensive urgency . The patient verbalizes their understanding and agreement with this plan and is hemodynamically stable at the time of admission. - Lab Data Lab results reviewed: Yes I reviewed the patient's lab results. Result diagrams: 04/18/19 19:03 04/18/19 19:03 Lab Results 04/18/19 04/18/19 04/18/19 Range/Units 19:03 19:03 19:03 WBC 9.7 (4.3-11.1) K/mcL RBC 4.20 (3.82-4.97) M/mcL Hgb 13.6 (11.5-15.4) g/dL Hct 41.6 (35.3-44.9) % MCV 99.0 (83.0-100.0) fL MCH 32.4 (28.0-33.3) pg MCHC 32.7 (31.6-35.5) g/dL RDW 12.5 (11.5-14.5) % Plt Count 205 (140-400) K/mcL MPV 10.2 (9.4-12.4) fL Immature Gran % 0.4 (0-4) % Seg Neutrophils % 63.9 % Lymphocytes % 27.1 % Monocytes % 6.3 % Eosinophils % 2.0 % Basophils % 0.3 % Neutrophils # 6.2 (1.6-8.9) K/mcL Lymphocytes # 2.6 (0.6-4.6) K/mcL Monocytes # 0.6 (0.0-1.3) K/mcL Eosinophils # 0.2 (0.0-0.6) K/mcL Basophils # 0.0 (0.0-0.2) K/mcL PT 10.8 (9.4-12.1) Seconds INR 1.0 APTT 30.5 (26.0-36.0) Seconds Sodium 142 (136-145) mEq/L Potassium 3.4 L (3.5-5.1) mEq/L Chloride 106 (98-107) mEq/L Carbon Dioxide 28 (23-29) mEq/L BUN 12 (8-23) mg/dL Creatinine 0.71 (0.60-1.20) mg/dL Est GFR ( Amer) > 60 (> 60) Est GFR (Non-Af Amer) > 60 (> 60) BUN/Creatinine Ratio 17 (6-26) Glucose 100 (70-105) mg/dL Calculated Osmolality 294 (280-300) Calcium 9.6 (8.6-10.3) mg/dL Magnesium 2.1 (1.6-2.6) mg/dL Total Bilirubin 0.4 (0.3-1.0) mg/dL Direct Bilirubin 0.1 (0.0-0.2) mg/dL Indirect Bilirubin 0.3 (0.0-1.2) mg/dL AST 17 (13-39) Units/L ALT 15 (7-52) Units/L Alkaline Phosphatase 84 (34-104) Units/L Troponin I (< 0.04) ng/mL B-Natriuretic Peptide (Less than 100) pg/mL Serum Total Protein 6.6 (6.4-8.9) g/dL Albumin 4.2 (3.5-5.7) g/dL Globulin 2.4 (2.4-3.5) g/dL Albumin/Globulin Ratio 1.8 (1.1-2.2) 04/18/19 04/18/19 Range/Units 19:06 19:06 WBC (4.3-11.1) K/mcL RBC (3.82-4.97) M/mcL Hgb (11.5-15.4) g/dL Hct (35.3-44.9) % MCV (83.0-100.0) fL MCH (28.0-33.3) pg MCHC (31.6-35.5) g/dL RDW (11.5-14.5) % Plt Count (140-400) K/mcL MPV (9.4-12.4) fL Immature Gran % (0-4) % Seg Neutrophils % % Lymphocytes % % Monocytes % % Eosinophils % % Basophils % % Neutrophils # (1.6-8.9) K/mcL Lymphocytes # (0.6-4.6) K/mcL Monocytes # (0.0-1.3) K/mcL Eosinophils # (0.0-0.6) K/mcL Basophils # (0.0-0.2) K/mcL PT (9.4-12.1) Seconds INR APTT (26.0-36.0) Seconds Sodium (136-145) mEq/L Potassium (3.5-5.1) mEq/L Chloride (98-107) mEq/L Carbon Dioxide (23-29) mEq/L BUN (8-23) mg/dL Creatinine (0.60-1.20) mg/dL Est GFR ( Amer) (> 60) Est GFR (Non-Af Amer) (> 60) BUN/Creatinine Ratio (6-26) Glucose (70-105) mg/dL Calculated Osmolality (280-300) Calcium (8.6-10.3) mg/dL Magnesium (1.6-2.6) mg/dL Total Bilirubin (0.3-1.0) mg/dL Direct Bilirubin (0.0-0.2) mg/dL Indirect Bilirubin (0.0-1.2) mg/dL AST (13-39) Units/L ALT (7-52) Units/L Alkaline Phosphatase (34-104) Units/L Troponin I < 0.03 (< 0.04) ng/mL B-Natriuretic Peptide 80 (Less than 100) pg/mL Serum Total Protein (6.4-8.9) g/dL Albumin (3.5-5.7) g/dL Globulin (2.4-3.5) g/dL Albumin/Globulin Ratio (1.1-2.2) - Radiology Data Radiology results reviewed: Yes I reviewed the patient's radiology results. Thoracic Spine X-Ray 04/18/19 20:41 IMPRESSION: No acute thoracic spine abnormality D/ / Ruddy Lackey MD / Ruddy Lackey MD Interpreting Provider: Ruddy Lackey MD Lumbar Spine X-Ray 04/18/19 20:42 IMPRESSION: 1. Multilevel degenerative disc disease and facet joint arthropathy 2. No acute lumbar spine abnormality D/ / Ruddy Lackey MD / Ruddy Lackey MD Interpreting Provider: Ruddy Lackey MD Cervical Spine X-Ray 04/18/19 20:43 IMPRESSION: 1. No acute cervical spine abnormality 2. Multilevel degenerative changes D/ / Ruddy Lackey MD / Ruddy Lackey MD Interpreting Provider: Ruddy Lackey MD Pelvis X-Ray 04/18/19 20:43 IMPRESSION: No acute osseous abnormality. D/ / Ruddy Lackey MD / Ruddy Lackey MD Interpreting Provider: Ruddy Lackey MD - EKG Data EKG attestation: Yes I reviewed and interpreted this EKG. EKG results narrative: The patients EKG shows a sinus rhythm with borderline prolonged QT interval at a computer analyzed rate of 84 beats per minute, NV interval of 143 milliseconds, a QRS duration of 91 milliseconds, a QT/QTc interval of 424 / 502 milliseconds respectively. There are no significant ST segment elevations, depressions, pathologic Q waves, abnormal T-wave inversions, nor any other signs of acute ischemic change. At this time there is no prior EKG available for comparison.
[2019-04-18] MEDS ORDERED: *HR* FentaNYL (PF) 100 MCG/2 ML VIAL IVP ONE (19:31)
[2019-04-18 19:54] LABS: Basophils % 0.3 %; Eosinophils # 0.2 K/mcL (0.0-0.6); Hematocrit 41.6 % (35.3-44.9); Hemoglobin 13.6 g/dL (11.5-15.4); Immature Granulocytes % 0.4 % (0-4); Lymphocytes # 2.6 K/mcL (0.6-4.6); Lymphocytes % 27.1 %; Mean Corpuscular HGB Conc 32.7 g/dL (31.6-35.5); Mean Corpuscular Hemoglobin 32.4 pg (28.0-33.3); Mean Platelet Volume 10.2 fL (9.4-12.4); Monocytes # 0.6 K/mcL (0.0-1.3); Monocytes % 6.3 %; Neutrophils # 6.2 K/mcL (1.6-8.9); Platelet Count 205 K/mcL (140-400); Red Cell Distribution Width 12.5 % (11.5-14.5); Segmented Neutrophils % 63.9 %; White Blood Count 9.7 K/mcL (4.3-11.1)
[2019-04-18] MEDS ORDERED: *HR* FentaNYL (PF) 100 MCG/2 ML VIAL ONE (19:56)
[2019-04-18 19:57] LABS: Prothrombin Time 10.8 Seconds (9.4-12.1)
[2019-04-18 19:58] LABS: Alanine Aminotransferase 15 Units/L (7-52); Albumin 4.2 g/dL (3.5-5.7); Albumin/Globulin Ratio 1.8 (1.1-2.2); Alkaline Phosphatase 84 Units/L (34-104); Aspartate Amino Transferase 17 Units/L (13-39); BUN/Creatinine Ratio 17 (6-26); Bilirubin,Direct 0.1 mg/dL (0.0-0.2); Bilirubin,Indirect 0.3 mg/dL (0.0-1.2); Bilirubin,Total 0.4 mg/dL (0.3-1.0); Blood Urea Nitrogen 12 mg/dL (8-23); Calcium 9.6 mg/dL (8.6-10.3); Carbon Dioxide 28 mEq/L (23-29); Chloride 106 mEq/L (98-107); Globulin 2.4 g/dL (2.4-3.5); Glucose 100 mg/dL (70-105); Osmolality,Calculated 294 (280-300); Potassium 3.4 mEq/L (3.5-5.1); Sodium 142 mEq/L (136-145); Total Protein 6.6 g/dL (6.4-8.9); eGFR For African Americans > 60 (> 60); eGFR For Non-African Americans > 60 (> 60)
[2019-04-18 20:00] LABS: Activated Partial Thrombo Time 30.5 Seconds (26.0-36.0)
--- NOTE | 2019-04-18 20:00 | Emergency Department Note ---
Disposition Clinical Impression: Hypertensive urgency, Headache Disposition: Admitted As Inpatient Condition: Fair Referrals: Ana Slaughter CNP [Primary Care Provider] - Forms: ED Satisfaction Letter Time of Disposition: 22:07 General Adult HPI - General Chief complaint: ED Headache Stated complaint: high bp/ headache Time Seen by Provider: 04/18/19 19:02 Source: patient, EMS - History of Present Illness Pain Scale: 7 - Related Data Home Medications Medication Instructions Recorded Confirmed Multivitamin [Multivitamins] 1 cap PO DAILY 08/27/15 04/18/19 Potassium Chloride [K-Tab ER] 10 meq PO BID 08/27/15 04/18/19 Pravastatin Sodium [Pravachol] 20 mg PO HS 08/27/15 04/18/19 Buspirone HCl [Buspar] 60 mg PO DAILY 12/04/18 04/18/19 Cetirizine HCl [24Hour Allergy] 10 mg PO DAILY 12/04/18 04/18/19 Fluticasone Propionate Nasal 1 spr NS BID 12/04/18 04/18/19 [Flonase] Sertraline [Zoloft] 100 mg PO DAILY 12/04/18 04/18/19 Solifenacin Succinate [Vesicare] 2.5 mg PO DAILY 12/04/18 04/18/19 Trazodone HCl 200 mg PO HS 12/04/18 04/18/19 Venlafaxine HCl [Venlafaxine HCl 150 mg PO BID 12/04/18 04/18/19 ER] Previous Rx's Medication Instructions Recorded Metoprolol [Lopressor] 25 mg PO BID #10 tablet 12/07/18 Allergies Allergy/AdvReac Type Severity Reaction Status Date / Time ampicillin [From Polycillin] Allergy Rash Verified 11/30/18 00:23 methylprednisolone Allergy Rash Verified 11/30/18 00:23 NSAIDS (Non-Steroidal Allergy Rash Verified 11/30/18 00:23 Anti-Inflamma Belladonna Alkaloids AdvReac Swelling Verified 11/30/18 00:23 [From Butibel] of Lip/Tongue/Throat Butabarbital [From Butibel] AdvReac Swelling Verified 11/30/18 00:23 of Lip/Tongue/Throat Doxepin [From Sinequan] AdvReac Swelling Verified 11/30/18 00:23 of Lip/Tongue/Throat guaifenesin AdvReac Rash Verified 11/30/18 00:23 metoclopramide AdvReac See Verified 11/30/18 00:23 Comments omeprazole AdvReac Abdominal Verified 11/30/18 00:23 Pain prednisone AdvReac Nausea Verified 11/30/18 00:23 sulfamethoxazole AdvReac See Verified 11/30/18 00:23 [From Bactrim] Comments trimethoprim [From Bactrim] AdvReac See Verified 11/30/18 00:23 Comments octicar AdvReac See Uncoded 11/30/18 00:23 Comments travil AdvReac Swelling Uncoded 11/30/18 00:23 of Lip/Tongue/Throat Past Medical History - Past Medical History Medical history: Reports: arthritis, asthma, fibromyalgia, GERD, hyperlipidemia, hypertension, RA Psychiatric history: Reports: depression - Social History Smoking Status: Never smoker Smokeless Tobacco Status: No Alcohol use: Reports: none Drug use: Reports: none Physical Exam - General General appearance: alert, in no apparent distress Course Vital Signs Temperature 98.6 F 04/18/19 18:52 Pulse Rate 81 04/18/19 18:52 Respiratory Rate 15 04/18/19 18:52 Blood Pressure 222/113 04/18/19 18:52 O2 Sat by Pulse Oximetry 98 04/18/19 18:52 Temperature 98.6 F 04/18/19 18:52 Pulse Rate 87 04/18/19 22:02 Respiratory Rate 16 04/18/19 22:02 Blood Pressure 177/92 04/18/19 22:02 O2 Sat by Pulse Oximetry 97 04/18/19 22:02 Oxygen Delivery Oxygen Delivery Room Air Medical Decision Making - Lab Data Result diagrams: 04/18/19 19:03 04/18/19 19:03 Lab Results 04/18/19 04/18/19 04/18/19 Range/Units 19:03 19:03 19:03 WBC 9.7 (4.3-11.1) K/mcL RBC 4.20 (3.82-4.97) M/mcL Hgb 13.6 (11.5-15.4) g/dL Hct 41.6 (35.3-44.9) % MCV 99.0 (83.0-100.0) fL MCH 32.4 (28.0-33.3) pg MCHC 32.7 (31.6-35.5) g/dL RDW 12.5 (11.5-14.5) % Plt Count 205 (140-400) K/mcL MPV 10.2 (9.4-12.4) fL Immature Gran % 0.4 (0-4) % Seg Neutrophils % 63.9 % Lymphocytes % 27.1 % Monocytes % 6.3 % Eosinophils % 2.0 % Basophils % 0.3 % Neutrophils # 6.2 (1.6-8.9) K/mcL Lymphocytes # 2.6 (0.6-4.6) K/mcL Monocytes # 0.6 (0.0-1.3) K/mcL Eosinophils # 0.2 (0.0-0.6) K/mcL Basophils # 0.0 (0.0-0.2) K/mcL PT 10.8 (9.4-12.1) Seconds INR 1.0 APTT 30.5 (26.0-36.0) Seconds Sodium 142 (136-145) mEq/L Potassium 3.4 L (3.5-5.1) mEq/L Chloride 106 (98-107) mEq/L Carbon Dioxide 28 (23-29) mEq/L BUN 12 (8-23) mg/dL Creatinine 0.71 (0.60-1.20) mg/dL Est GFR ( Amer) > 60 (> 60) Est GFR (Non-Af Amer) > 60 (> 60) BUN/Creatinine Ratio 17 (6-26) Glucose 100 (70-105) mg/dL Calculated Osmolality 294 (280-300) Calcium 9.6 (8.6-10.3) mg/dL Magnesium 2.1 (1.6-2.6) mg/dL Total Bilirubin 0.4 (0.3-1.0) mg/dL Direct Bilirubin 0.1 (0.0-0.2) mg/dL Indirect Bilirubin 0.3 (0.0-1.2) mg/dL AST 17 (13-39) Units/L ALT 15 (7-52) Units/L Alkaline Phosphatase 84 (34-104) Units/L Troponin I (< 0.04) ng/mL B-Natriuretic Peptide (Less than 100) pg/mL Serum Total Protein 6.6 (6.4-8.9) g/dL Albumin 4.2 (3.5-5.7) g/dL Globulin 2.4 (2.4-3.5) g/dL Albumin/Globulin Ratio 1.8 (1.1-2.2) 04/18/19 04/18/19 Range/Units 19:06 19:06 WBC (4.3-11.1) K/mcL RBC (3.82-4.97) M/mcL Hgb (11.5-15.4) g/dL Hct (35.3-44.9) % MCV (83.0-100.0) fL MCH (28.0-33.3) pg MCHC (31.6-35.5) g/dL RDW (11.5-14.5) % Plt Count (140-400) K/mcL MPV (9.4-12.4) fL Immature Gran % (0-4) % Seg Neutrophils % % Lymphocytes % % Monocytes % % Eosinophils % % Basophils % % Neutrophils # (1.6-8.9) K/mcL Lymphocytes # (0.6-4.6) K/mcL Monocytes # (0.0-1.3) K/mcL Eosinophils # (0.0-0.6) K/mcL Basophils # (0.0-0.2) K/mcL PT (9.4-12.1) Seconds INR APTT (26.0-36.0) Seconds Sodium (136-145) mEq/L Potassium (3.5-5.1) mEq/L Chloride (98-107) mEq/L Carbon Dioxide (23-29) mEq/L BUN (8-23) mg/dL Creatinine (0.60-1.20) mg/dL Est GFR ( Amer) (> 60) Est GFR (Non-Af Amer) (> 60) BUN/Creatinine Ratio (6-26) Glucose (70-105) mg/dL Calculated Osmolality (280-300) Calcium (8.6-10.3) mg/dL Magnesium (1.6-2.6) mg/dL Total Bilirubin (0.3-1.0) mg/dL Direct Bilirubin (0.0-0.2) mg/dL Indirect Bilirubin (0.0-1.2) mg/dL AST (13-39) Units/L ALT (7-52) Units/L Alkaline Phosphatase (34-104) Units/L Troponin I < 0.03 (< 0.04) ng/mL B-Natriuretic Peptide 80 (Less than 100) pg/mL Serum Total Protein (6.4-8.9) g/dL Albumin (3.5-5.7) g/dL Globulin (2.4-3.5) g/dL Albumin/Globulin Ratio (1.1-2.2) Attestation Statement - Attestation Attestation: I examined this patient and my medical decision-making was reviewed with the Resident Physician. I agree with the documented findings, disposition and treatment plan as described except to the extent set forth below. Patient 74-year-old female that presents to emergency department with chief complaint of headache and elevated blood pressure. The patient was seen in urgent care and found to have a significantly elevated blood pressure. Patient had a diastolic in the 140. Patient also reports that approximately one week ago she was hanging some curtains and fell and complains of head and neck and back pain. The patient states she has a bruise in her right gluteal area and also in her left ankle. Exam patient is awake alert no acute distress patient has no focal neurological deficits. Patient has a small half-dollar size bruise in her right gluteal area she also has a small bruise to the left ankle. There is no deformity noted on examination. Medical decision management the patient will be evaluated from a trauma standpoint and the patient will also be evaluated from hypertensive urgency standpoint. The patient's blood pressure does not come down with treating her pain patient most likely will require IV hypertensive treatment. I personally supervised and was present for the [place]/critical portions of the following procedures completed by the resident:EKG.
[2019-04-18] MEDS ORDERED: niCARdipine 20 MG/200 ML MLS IVC ONE (21:54)
[2019-04-18] MEDS: niCARdipine 20 MG/200 ML MLS IVC SCH (21:59)
[2019-04-18 22:04] LABS: Magnesium 2.1 mg/dL (1.6-2.6)
[2019-04-19] MEDS ORDERED: niCARdipine 20 MG/200 ML MLS IVC ONE (02:46)
[2019-04-19] MEDS: niCARdipine 20 MG/200 ML MLS IVC SCH ×3 (02:51→09:12)
[2019-04-19] MEDS ORDERED: Naloxone 0.4 MG/ML INJ IVP PRN (03:46)
[2019-04-19] MEDS ORDERED: Potassium Chloride Elixir 20 MEQ/15 ML UDC PO ONE (03:47)
--- NOTE | 2019-04-19 03:53 | Internal Med History&Physical ---
Date of Encounter: 04/19/19 Time of Encounter: 02:00 Internal Medicine - H&P: HPI Chief complaint: Hypertensive urgency Admitted From: Emergency Dept Plans for Post Hospital Care: Home History of present illness: Ms. Sanabria is a 74 year old female Patient presented to the emergency department with elevated blood pressures for 1 week. She takes metoprolol at home, but over the last week despite her normal medicine, her blood pressure has not been well controlled. One week ago she had been up on a stool and fell off a stool landing on her right side. She did come to the hospital for this but she says ever since this accident she "has not felt right." She goes to see her PCP and bone and joint doctor, and I she had an appointment to follow-up with plan on the of this month. She has been feeling somewhat lightheaded and dizzy though and with the blood pressure and occasional chest pain she decided to come to the hospital for further evaluation. Emergency department vital signs: Blood pressure 222/113, respiratory rate 15, temperature 98.6, pulse 81, O2 saturation 98% on room air CBC: Unremarkable BMP notable only for a potassium of 3.4, otherwise within normal limits. Initial troponin undetectable INR 1.0 Liver function tests unremarkable. Head CT showed no acute intracranial abnormality Cervical spine x-ray showed no acute abnormality Thoracic spine showed no acute thoracic spine abnormality. Lumbar x-ray showed multilevel degenerative disc disease and facet joint arthropathy but no acute abnormality Pelvis x-ray showed no acute osseous abnormality EKG: Sinus rhythm, rate 84, QTC [address] changes In the emergency department patient received 75 g dose of fentanyl and was started on Cardene drip. She was admitted to the hospital for further monitoring. Upon my evaluation, patient is resting comfortably in the hospital bed in no acute distress. She denies abdominal pain, nausea, vomiting, diarrhea and constipation. She has had some chest pain she describes as "all over." She is a full code. Past Med Surg Social Fam HX - Past Medical History Medical history: arthritis, asthma, fibromyalgia, GERD, hyperlipidemia, hypertension, RA Psychiatric history: depression - Past Surgical History Additional surgical history: Lypoma from R Hip. Eardrum Repair. Bladder Tuck - Social History Smoking Status: Never smoker Smokeless Tobacco Status: No Alcohol use: none Drug use: none - Family History Sister Adopted: No Family Member Ethnicity: Non- Living Status: Still Living Hx Family Cardiac Disorders: No Hx Family Respiratory Disorders: Yes (needs O2) Hx Family Cancer: No Hx Family GI Disorders: No Hx Family Endocrine Disorder: No Hx Family Neuromuscular Disorders: No Hx Family Neurologic Disorders: No Hx Family HEENT Disorders: No Hx Family Autoimmune Disorders: No Internal Medicine - H&P: Meds Multivitamin [Multivitamins] 1 cap PO DAILY 08/27/15 [History] Potassium Chloride [K-Tab ER] 10 meq PO BID 08/27/15 [History] Pravastatin Sodium [Pravachol] 20 mg PO HS 08/27/15 [History] Buspirone HCl [Buspar] 60 mg PO DAILY 12/04/18 [History] Cetirizine HCl [24Hour Allergy] 10 mg PO DAILY 12/04/18 [History] Fluticasone Propionate Nasal [Flonase] 1 spr NS BID 12/04/18 [History] Sertraline [Zoloft] 100 mg PO DAILY 12/04/18 [History] Solifenacin Succinate [Vesicare] 2.5 mg PO DAILY 12/04/18 [History] Trazodone HCl 200 mg PO HS 12/04/18 [History] Venlafaxine HCl [Venlafaxine HCl ER] 150 mg PO BID 12/04/18 [History] Metoprolol [Lopressor] 25 mg PO BID #10 tablet 12/07/18 [Rx] Allergy/AdvReac Type Severity Reaction Status Date / Time ampicillin [From Polycillin] Allergy Rash Verified 11/30/18 00:23 methylprednisolone Allergy Rash Verified 11/30/18 00:23 NSAIDS (Non-Steroidal Allergy Rash Verified 11/30/18 00:23 Anti-Inflamma Belladonna Alkaloids AdvReac Swelling Verified 11/30/18 00:23 [From Butibel] of Lip/Tongue/Throat Butabarbital [From Butibel] AdvReac Swelling Verified 11/30/18 00:23 of Lip/Tongue/Throat Doxepin [From Sinequan] AdvReac Swelling Verified 11/30/18 00:23 of Lip/Tongue/Throat guaifenesin AdvReac Rash Verified 11/30/18 00:23 metoclopramide AdvReac See Verified 11/30/18 00:23 Comments omeprazole AdvReac Abdominal Verified 11/30/18 00:23 Pain prednisone AdvReac Nausea Verified 11/30/18 00:23 sulfamethoxazole AdvReac See Verified 11/30/18 00:23 [From Bactrim] Comments trimethoprim [From Bactrim] AdvReac See Verified 11/30/18 00:23 Comments octicar AdvReac See Uncoded 11/30/18 00:23 Comments travil AdvReac Swelling Uncoded 11/30/18 00:23 of Lip/Tongue/Throat All Systems PM: A 10-system review of systems was performed and is negative for pertinent findings except as documented above in the HPI. - Constitutional Vitals: Temp Pulse Resp BP Pulse Ox 98.5 F 97 14 145/84 93 04/19/19 03:30 04/19/19 03:30 04/19/19 03:30 04/19/19 03:30 04/19/19 03:30 General appearance: Present: cooperative, A&O X 3, pleasant, no acute distress, answers questions appropriately Exam: - - Head Head exam: Present: normal inspection - Eye Eye exam: Present: EOMI, normal appearance - Respiratory Respiratory exam: Present: CTAB. Absent: rales, respiratory distress, rhonchi, wheezes - Cardiovascular Cardiovascular exam: Present: RRR. Absent: diastolic murmur, systolic murmur - GI/Abdominal GI/Abdominal exam: Present: normal bowel sounds, soft. Absent: tenderness - Extremities Exam Extremities exam: Present: warm, radial pulses palpable and symmetrical. Absent: calf tenderness, pedal edema, tenderness - Neurological Exam Neurological exam: Present: no focal deficits, strengths equal and symetr throughout. Absent: motor sensory deficit, facial droop, speech deficit - Skin Skin exam: Present: dry, normal color, warm Internal Med - H&P Results - Labs CBC & Chem 7: 04/18/19 19:03 04/18/19 19:03 Labs: Short CBC 04/18/19 Range/Units 19:03 WBC 9.7 (4.3-11.1) K/mcL Hgb 13.6 (11.5-15.4) g/dL Hct 41.6 (35.3-44.9) % Plt Count 205 (140-400) K/mcL Neutrophils # 6.2 (1.6-8.9) K/mcL BMP 04/18/19 19:03 Sodium 142 Potassium 3.4 L Chloride 106 Carbon Dioxide 28 BUN 12 Creatinine 0.71 Glucose 100 Calcium 9.6 Cardiac Enzymes 04/18/19 Range/Units 19:06 Troponin I < 0.03 (< 0.04) ng/mL Liver Function 04/18/19 Range/Units 19:03 Total Bilirubin 0.4 (0.3-1.0) mg/dL Direct Bilirubin 0.1 (0.0-0.2) mg/dL AST 17 (13-39) Units/L ALT 15 (7-52) Units/L Alkaline Phosphatase 84 (34-104) Units/L Albumin 4.2 (3.5-5.7) g/dL - Impressions ITS Impressions Thoracic Spine X-Ray 04/18/19 20:41 IMPRESSION: No acute thoracic spine abnormality D/ / Ruddy Lackey MD / Ruddy Lackey MD Interpreting Provider: Ruddy Lackey MD Lumbar Spine X-Ray 04/18/19 20:42 IMPRESSION: 1. Multilevel degenerative disc disease and facet joint arthropathy 2. No acute lumbar spine abnormality D/ / Ruddy Lackey MD / Ruddy Lackey MD Interpreting Provider: Ruddy Lackey MD Cervical Spine X-Ray 04/18/19 20:43 IMPRESSION: 1. No acute cervical spine abnormality 2. Multilevel degenerative changes D/ / Ruddy Lackey MD / Ruddy Lackey MD Interpreting Provider: Ruddy Lackey MD Pelvis X-Ray 04/18/19 20:43 IMPRESSION: No acute osseous abnormality. D/ / Ruddy Lackey MD / Ruddy Lackey MD Interpreting Provider: Ruddy Lackey MD Head CT 04/18/19 21:10 IMPRESSION: No acute intracranial abnormality. 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 D/ / Ruddy Lackey MD / Ruddy Lackey MD Interpreting Provider: Ruddy Lackey MD - Assessment and Plan (1) Hypertensive urgency Current Visit: Yes Status: Acute Assessment and plan: Patient had elevated blood pressures greater than 200 systolic in the emergency department. Patient does have a history of hypertension, and states that she did take her medicines the morning of her presentation to the ER. Patient's other vitals and lab results are within normal limits however. She was started on Cardene drip in the emergency department. Her blood pressures have improved, and the Cardene rate has been reduced. Continue to monitor blood pressures Restart home blood pressure medicines in the morning Continue Cardene drip, titrate based on response. (2) Hypokalemia Current Visit: Yes Status: Acute Assessment and plan: Potassium mildly low at 3.4. Magnesium 2.1. Replete potassium Repeat a.m. labs (3) DVT prophylaxis Current Visit: No Status: Acute Assessment and plan: SCDs - Time Spent With Patient Total time spent is greater than 50% in coordination of care (as documented) at patient's floor/unit and/or counseling patient:
[2019-04-19 05:46] LABS: Hematocrit 42.4 % (35.3-44.9); Hemoglobin 13.6 g/dL (11.5-15.4); Mean Corpuscular HGB Conc 32.1 g/dL (31.6-35.5); Mean Corpuscular Hemoglobin 31.6 pg (28.0-33.3); Mean Corpuscular Volume 98.4 fL (83.0-100.0); Mean Platelet Volume 10.1 fL (9.4-12.4); Platelet Count 211 K/mcL (140-400); Red Blood Count 4.31 M/mcL (3.82-4.97); Red Cell Distribution Width 12.6 % (11.5-14.5); White Blood Count 11.2 K/mcL (4.3-11.1)
[2019-04-19 06:09] LABS: BUN/Creatinine Ratio 13 (6-26); Blood Urea Nitrogen 8 mg/dL (8-23); Calcium 9.1 mg/dL (8.6-10.3); Carbon Dioxide 25 mEq/L (23-29); Chloride 105 mEq/L (98-107); Glucose 128 mg/dL (70-105); Osmolality,Calculated 294 (280-300); Potassium 3.4 mEq/L (3.5-5.1); Sodium 142 mEq/L (136-145); Troponin I < 0.03 ng/mL (< 0.04); eGFR For African Americans > 60 (> 60); eGFR For Non-African Americans > 60 (> 60)
[2019-04-19] MEDS ORDERED: Venlafaxine XR (24 HR) 150 MG CAP.ER.24H PO SCH (09:00)
[2019-04-19] MEDS ORDERED: amLODIPine 5 MG TABLET PO SCH (09:00)
[2019-04-19] MEDS ORDERED: Loratadine 10 MG TABLET PO SCH (09:00)
--- NOTE | 2019-04-19 09:59 | Electrocardiograph Report ---
[facility] Test Date: 2019-04-18 Pat Name: Iraida Sanabria Department: EXAM8 Room: 2N06 Gender: F Ordnance Officer: : 1945 Requested By: Germán Watson Order Number: [id number] Reading MD: Giovanny Joseph Measurements Intervals [place] Rate: 84 P: 46 FL: 143 QRS: 50 QRSD: 91 T: 29 QT: 424 QTc: 502 Interpretive Statements Sinus rhythm Abnormal R-wave progression, early transition Prolonged QT interval Electronically Signed On 04-19-2019 9:57:49 EDT by Giovanny Joseph
--- NOTE | 2019-04-19 11:53 | Event Note ---
Date of Encounter: 04/19/19 Time of Encounter: 11:51 HTN urgency: BP responded incredibly well to nicardipine, was 130s/90s (overcorrected) when I saw her and repeated automatic pressure. No symptoms including no NO, visual change, confusion, CP, SOB, or leg swelling. - stop nicardipine gtt - start amlodipine 10 - obs today and consider d/c later today or tomorrow AM
[2019-04-19 12:04] VITALS: BP 159/94
--- NOTE | 2019-04-19 15:14 | Discharge Summary ---
- NOTES TO OUTPATIENT PROVIDER Notes to Outpatient Provider: HTN urgency, improved w amlodipine. Needs blood pressure check Date of Encounter: 04/19/19 Time of Encounter: 15:06 Hospital course: Dear Doctors, I recently had the opportunity to care for this patient during their recent hospital stay at [facility]. Iraida Sanabria is a 74 F w hx HTN, HLD, asthma, OA, fibro, GERD, who presented at the time of admission with headache. She was found to have SBP 220s, for which ECG, CXR and CT head, and labs including trop, all unremarkable. Patient was not trialed on any prn antihypertensive and instead placed directly on nicardipine gtt, with which she had good symptomatic improvement in ED. She was admitted due to nicardipine gtt. In the hospital, nicardipine gtt stopped. Pt started on amlodipine. Her BP maintained in the 130-160s and she was discharged to outpatient PCP follow up. Dx: HTN urgency Pertinent tests/consults: CT head unremarkable Follow up: PCP 1 week Tests pending: none Med changes: new amlodipine 10 daily Mental status: awake, fully oriented Code status: Full It has been my pleasure participating in this patient's care. Please contact me with any questions or concerns regarding their hospital stay. Sincerely, Siddharth Murray MD - Time Spent with Patient Time spent: D/C greater than 8 hours after Admission - Discharge Medications Prescriptions: New Amlodipine Besylate 10 mg PO DAILY #30 tablet Continued Potassium Chloride [K-Tab ER] 10 meq PO BID Pravastatin Sodium [Pravachol] 20 mg PO HS Multivitamin [Multivitamins] 1 cap PO DAILY Buspirone HCl [Buspar] 30 mg PO BID Cetirizine HCl [24Hour Allergy] 10 mg PO DAILY Fluticasone Propionate Nasal [Flonase] 1 spr NS BID Sertraline [Zoloft] 100 mg PO DAILY Solifenacin Succinate [Vesicare] 2.5 mg PO DAILY Trazodone HCl 200 mg PO HS Venlafaxine HCl [Venlafaxine HCl ER] 150 mg PO BID Metoprolol [Lopressor] 25 mg PO BID #10 tablet Home Medications: Multivitamin [Multivitamins] 1 cap PO DAILY 08/27/15 [History] Potassium Chloride [K-Tab ER] 10 meq PO BID 08/27/15 [History] Pravastatin Sodium [Pravachol] 20 mg PO HS 08/27/15 [History] Buspirone HCl [Buspar] 30 mg PO BID 12/04/18 [History] Cetirizine HCl [24Hour Allergy] 10 mg PO DAILY 12/04/18 [History] Fluticasone Propionate Nasal [Flonase] 1 spr NS BID 12/04/18 [History] Sertraline [Zoloft] 100 mg PO DAILY 12/04/18 [History] Solifenacin Succinate [Vesicare] 2.5 mg PO DAILY 12/04/18 [History] Trazodone HCl 200 mg PO HS 12/04/18 [History] Venlafaxine HCl [Venlafaxine HCl ER] 150 mg PO BID 12/04/18 [History] Metoprolol [Lopressor] 25 mg PO BID #10 tablet 12/07/18 [Rx] Amlodipine Besylate 10 mg PO DAILY #30 tablet 04/19/19 [Rx] Allergies/Adverse Reactions: Allergy/AdvReac Type Severity Reaction Status Date / Time ampicillin [From Polycillin] Allergy Rash Verified 11/30/18 00:23 methylprednisolone Allergy Rash Verified 11/30/18 00:23 NSAIDS (Non-Steroidal Allergy Rash Verified 11/30/18 00:23 Anti-Inflamma Belladonna Alkaloids AdvReac Swelling Verified 11/30/18 00:23 [From Butibel] of Lip/Tongue/Throat Butabarbital [From Butibel] AdvReac Swelling Verified 11/30/18 00:23 of Lip/Tongue/Throat Doxepin [From Sinequan] AdvReac Swelling Verified 11/30/18 00:23 of Lip/Tongue/Throat guaifenesin AdvReac Rash Verified 11/30/18 00:23 metoclopramide AdvReac See Verified 11/30/18 00:23 Comments omeprazole AdvReac Abdominal Verified 11/30/18 00:23 Pain prednisone AdvReac Nausea Verified 11/30/18 00:23 sulfamethoxazole AdvReac See Verified 11/30/18 00:23 [From Bactrim] Comments trimethoprim [From Bactrim] AdvReac See Verified 11/30/18 00:23 Comments octicar AdvReac See Uncoded 11/30/18 00:23 Comments yuki AdvReac Swelling Uncoded 11/30/18 00:23 of Lip/Tongue/Throat Date of admission: 04/19/19 00:16 Primary care physician: Ana Slaughter CNP - Constitutional Vitals: Temp Pulse Resp BP Pulse Ox 99.1 F 78 12 159/94 94 04/19/19 12:02 04/19/19 12:02 04/19/19 12:02 04/19/19 12:02 04/19/19 12:02 Exam: General: NAD, good eye contact, well appearing Thoracic: Normal breath sounds b/l, no wheezing or crackles Cardio: Normal S1 and S2, regular rate and rhythm, no murmurs Abdomen: Soft, nontender Extremities: Warm, well perfused. DP pulses 2+ b/l. No edema. Skin: Intact. No rashes, bruises, or ulcers Neuro: Awake, fully oriented. Speech fluent - Patient Status Disposition: Home, Self-Care Condition: Fair Functional capacity at discharge: independent ambulation Overall status at discharge: patient is back to baseline - Discharge Instructions Follow Up With: Ana Slaughter CNP [Primary Care Provider] - 04/26/19 10:35 am - Diet and Activity Activity: resume usual activities as tolerated Diet: low salt diet
[2019-04-19] MEDS ORDERED: FLU Vac QV 19-20 (6Month+)/PF 0.5 ML SYRINGE IM ONE (15:49)
== END 2019-04-19 16:47 | disposition home or self-care (01) ==
LOC: EMEROOARM 18:49 → 2NNU 18:49 → SUATTDRO 04-19 00:16 → 2NNU 04-19 00:40
PROVIDERS: ADMIT Internal Medicine; ATTEND Internal Medicine

== ENCOUNTER 2021-11-25 21:40 | Inpatient (IN) ==
[2021-11-25] MEDS ORDERED: Morphine Sulfate 2 MG/ML SYRINGE IVP ONE (21:59)
[2021-11-25] MEDS ORDERED: Ondansetron 4 MG/2 ML VIAL IVP ONE (22:00)
[2021-11-25] MEDS ORDERED: *HR* Ticagrelor 90 MG TABLET PO ONE (22:05)
[2021-11-25] MEDS ORDERED: *HR* Heparin 5,000 UNIT/ML VIAL IVP PRN ×2 (22:08)
[2021-11-25] MEDS ORDERED: *HR* Heparin 5,000 UNIT/ML VIAL IVP ONE (22:08)
[2021-11-25 22:12] LABS: Basophils # 0.1 K/mcL (0.0-0.2); Basophils % 0.4 %; Eosinophils # 0.3 K/mcL (0.0-0.6); Eosinophils % 1.9 %; Hematocrit 40.1 % (35.3-44.9); Hemoglobin 13.2 g/dL (11.5-15.4); Immature Granulocytes % 0.7 % (0-4); Lymphocytes # 2.6 K/mcL (0.6-4.6); Lymphocytes % 19.4 %; Mean Corpuscular HGB Conc 32.9 g/dL (31.6-35.5); Mean Corpuscular Hemoglobin 32.5 pg (28.0-33.3); Mean Corpuscular Volume 98.8 fL (83.0-100.0); Mean Platelet Volume 9.8 fL (9.4-12.4); Monocytes # 0.6 K/mcL (0.0-1.3); Monocytes % 4.7 %; Neutrophils # 9.9 K/mcL (1.6-8.9); Platelet Count 319 K/mcL (140-400); Red Blood Count 4.06 M/mcL (3.82-4.97); Red Cell Distribution Width 12.7 % (11.5-14.5); Segmented Neutrophils % 72.9 %; White Blood Count 13.6 K/mcL (4.3-11.1)
[2021-11-25] MEDS: Heparin 25,000UNIT/250ML 1/2NS 25,000 UNIT/250 ML IV.SOLN IVC SCH (22:16)
[2021-11-25] MEDS ORDERED: ISOVUE-370 200 ML INFUS..BTL ONE ×2 (22:25→23:16)
[2021-11-25] MEDS ORDERED: *HR* Heparin 10,000 UNIT/10 ML VIAL ONE (22:25)
[2021-11-25] MEDS ORDERED: Heparin 1,000 UNITS/500 mL 500 ML ONE (22:25)
[2021-11-25] MEDS ORDERED: 0.9 % Sodium Chloride 1,000 ML ONE ×2 (22:25→22:30)
[2021-11-25] MEDS ORDERED: *HR* FentaNYL (PF) 100 MCG/2 ML VIAL ONE (22:28)
[2021-11-25] MEDS ORDERED: *HR* Midazolam HCl 2 MG/2 ML VIAL ONE (22:28)
[2021-11-25] MEDS ORDERED: Nitroglycerin 1,000 MCG/5 ML VIAL IV ONE (22:30)
[2021-11-25 22:38] LABS: BUN/Creatinine Ratio 16 (6-26); Blood Urea Nitrogen 16 mg/dL (8-23); Calcium 9.7 mg/dL (8.6-10.3); Carbon Dioxide 24 mEq/L (23-29); Chloride 106 mEq/L (98-107); Glucose 174 mg/dL (70-105); Osmolality,Calculated 293 (280-300); Potassium 3.7 mEq/L (3.5-5.1); Sodium 139 mEq/L (136-145); Troponin I 0.43 ng/mL (< 0.04); eGFR For African Americans > 60 (> 60); eGFR For Non-African Americans 52 (> 60)
[2021-11-25 22:44] LABS: INR 1.1; Prothrombin Time 11.9 Seconds (9.4-12.1)
[2021-11-25 23:00] LABS: Activated Partial Thrombo Time 170.9 Seconds (26.0-36.0)
[2021-11-25 23:01] LABS: Heparin anti-factor XA UFH 1.19 IU/mL (0.30-0.70)
[2021-11-25] MEDS ORDERED: Tirofiban 12.5 MG/250ML 12.5 MG/250 ML BAG ONE (23:01)
[2021-11-25] MEDS ORDERED: Ondansetron 4 MG/2 ML VIAL ONE (23:28)
[2021-11-26] MEDS ORDERED: Perflutren Lipid Microsphere 1.3 ML in 0.9 % Sodium Chloride 8.7 ML IVP PRN (00:05)
[2021-11-26] MEDS ORDERED: Tirofiban 12.5 MG/250ML 12.5 MG/250 ML BAG IVC SCH (00:15)
[2021-11-26] MEDS ORDERED: tiZANidine 4 MG TABLET PO PRN (00:19)
[2021-11-26 05:54] LABS: Basophils % 0.2 %; Hematocrit 42.4 % (35.3-44.9); Hemoglobin 13.5 g/dL (11.5-15.4); Immature Granulocytes % 0.6 % (0-4); Lymphocytes # 1.1 K/mcL (0.6-4.6); Lymphocytes % 6.6 %; Mean Corpuscular HGB Conc 31.8 g/dL (31.6-35.5); Mean Corpuscular Hemoglobin 32.2 pg (28.0-33.3); Mean Corpuscular Volume 101.2 fL (83.0-100.0); Mean Platelet Volume 9.8 fL (9.4-12.4); Monocytes # 0.5 K/mcL (0.0-1.3); Monocytes % 3.1 %; Neutrophils # 14.3 K/mcL (1.6-8.9); Platelet Count 337 K/mcL (140-400); Red Blood Count 4.19 M/mcL (3.82-4.97); Segmented Neutrophils % 89.5 %
[2021-11-26 06:26] LABS: BUN/Creatinine Ratio 16 (6-26); Blood Urea Nitrogen 12 mg/dL (8-23); Calcium 8.5 mg/dL (8.6-10.3); Carbon Dioxide 23 mEq/L (23-29); Chloride 105 mEq/L (98-107); Glucose 182 mg/dL (70-105); Osmolality,Calculated 292 (280-300); Potassium 3.7 mEq/L (3.5-5.1); Sodium 139 mEq/L (136-145); Troponin I 29.32 ng/mL (< 0.04); eGFR For African Americans > 60 (> 60); eGFR For Non-African Americans > 60 (> 60)
[2021-11-26] MEDS: Venlafaxine XR (24 HR) 150 MG CAP.ER.24H PO SCH ×2 (08:49→20:56)
[2021-11-26] MEDS: *HR* Ticagrelor 90 MG TABLET PO SCH ×2 (08:49→20:57)
[2021-11-26] MEDS: Aspirin 81 MG TAB.CHEW PO SCH (08:49)
[2021-11-26] MEDS: Loratadine 10 MG TABLET PO SCH (08:49)
[2021-11-26] MEDS ORDERED: lisinopriL 10 MG TABLET PO SCH (09:00)
[2021-11-26] MEDS: Fluticasone Propionate Nasal 50 MCG/SPRAY BOTTLE NS SCH ×2 (09:00→20:53)
[2021-11-26] MEDS ORDERED: Metoprolol XL (24 HR) Succ 25 MG TAB.ER.24H PO SCH (12:15)
[2021-11-26] MEDS ORDERED: lisinopriL 10 MG TABLET PO ONE (12:20)
[2021-11-26] MEDS ORDERED: Artificial Tears SOLN 15 ML BOTTLE BOTH EYES PRN (12:51)
[2021-11-26] MEDS: Metoprolol XL (24 HR) Succ 25 MG TAB.ER.24H PO SCH ×3 (12:51→20:56)
[2021-11-26] MEDS ORDERED: lisinopriL 20 MG TABLET PO ONE (17:00)
[2021-11-26] MEDS: Heparin 25,000UNIT/250ML 1/2NS 25,000 UNIT/250 ML IV.SOLN IVC SCH (21:02)
[2021-11-26] MEDS: ALPRAZolam 0.5 MG TABLET PO PRN (22:04)
[2021-11-26] MEDS: traZODone 50 MG TABLET PO SCH (22:04)
[2021-11-27] MEDS: Loratadine 10 MG TABLET PO SCH (08:26)
[2021-11-27] MEDS: Venlafaxine XR (24 HR) 150 MG CAP.ER.24H PO SCH ×2 (08:26→19:55)
[2021-11-27] MEDS: Aspirin 81 MG TAB.CHEW PO SCH (08:26)
[2021-11-27] MEDS: *HR* Ticagrelor 90 MG TABLET PO SCH ×2 (08:26→19:54)
[2021-11-27] MEDS: lisinopriL 20 MG TABLET PO SCH (08:27)
[2021-11-27] MEDS: Metoprolol XL (24 HR) Succ 25 MG TAB.ER.24H PO SCH ×2 (08:27→19:54)
[2021-11-27] MEDS: Fluticasone Propionate Nasal 50 MCG/SPRAY BOTTLE NS SCH ×2 (08:27→19:53)
[2021-11-27] MEDS ORDERED: lisinopriL 10 MG TABLET PO SCH (09:00)
[2021-11-27 13:09] LABS: Basophils % 0.2 %; Eosinophils # 0.1 K/mcL (0.0-0.6); Eosinophils % 0.5 %; Immature Granulocytes % 0.7 % (0-4); Lymphocytes # 2.2 K/mcL (0.6-4.6); Lymphocytes % 13.6 %; Mean Corpuscular HGB Conc 32.2 g/dL (31.6-35.5); Mean Corpuscular Hemoglobin 32.1 pg (28.0-33.3); Mean Corpuscular Volume 99.7 fL (83.0-100.0); Mean Platelet Volume 10.1 fL (9.4-12.4); Monocytes # 1.3 K/mcL (0.0-1.3); Monocytes % 8.1 %; Neutrophils # 12.6 K/mcL (1.6-8.9); Platelet Count 251 K/mcL (140-400); Red Blood Count 3.71 M/mcL (3.82-4.97); Red Cell Distribution Width 13.5 % (11.5-14.5); Segmented Neutrophils % 76.9 %; White Blood Count 16.4 K/mcL (4.3-11.1)
[2021-11-27 13:31] LABS: BUN/Creatinine Ratio 26 (6-26); Blood Urea Nitrogen 19 mg/dL (8-23); Calcium 8.7 mg/dL (8.6-10.3); Carbon Dioxide 26 mEq/L (23-29); Chloride 106 mEq/L (98-107); Glucose 146 mg/dL (70-105); Osmolality,Calculated 291 (280-300); Potassium 3.8 mEq/L (3.5-5.1); Sodium 138 mEq/L (136-145); eGFR For African Americans > 60 (> 60); eGFR For Non-African Americans > 60 (> 60)
[2021-11-27 13:35] LABS: Hemoglobin 11.9 g/dL (11.5-15.4)
[2021-11-27] MEDS: traZODone 50 MG TABLET PO SCH (19:54)
[2021-11-27] MEDS: ALPRAZolam 0.5 MG TABLET PO PRN (22:42)
[2021-11-28 03:25] VITALS: O2SAT 96
[2021-11-28] MEDS ORDERED: *HR* Heparin 5,000 UNIT/ML VIAL SQ SCH (06:00)
[2021-11-28 07:42] LABS: Basophils % 0.3 %; Eosinophils # 0.2 K/mcL (0.0-0.6); Eosinophils % 1.4 %; Hematocrit 36.5 % (35.3-44.9); Hemoglobin 11.6 g/dL (11.5-15.4); Immature Granulocytes % 0.8 % (0-4); Lymphocytes # 2.3 K/mcL (0.6-4.6); Mean Corpuscular HGB Conc 31.8 g/dL (31.6-35.5); Mean Corpuscular Hemoglobin 32.4 pg (28.0-33.3); Mean Platelet Volume 10.3 fL (9.4-12.4); Monocytes # 1.2 K/mcL (0.0-1.3); Monocytes % 8.4 %; Neutrophils # 10.5 K/mcL (1.6-8.9); Platelet Count 260 K/mcL (140-400); Red Blood Count 3.58 M/mcL (3.82-4.97); Red Cell Distribution Width 13.6 % (11.5-14.5); Segmented Neutrophils % 73.1 %; White Blood Count 14.3 K/mcL (4.3-11.1)
[2021-11-28] MEDS: Metoprolol XL (24 HR) Succ 25 MG TAB.ER.24H PO SCH (08:34)
[2021-11-28] MEDS: *HR* Ticagrelor 90 MG TABLET PO SCH (08:35)
[2021-11-28] MEDS: Venlafaxine XR (24 HR) 150 MG CAP.ER.24H PO SCH (08:35)
[2021-11-28] MEDS: Aspirin 81 MG TAB.CHEW PO SCH (08:35)
[2021-11-28] MEDS: lisinopriL 20 MG TABLET PO SCH (08:35)
[2021-11-28] MEDS: Loratadine 10 MG TABLET PO SCH (08:36)
[2021-11-28] MEDS: Fluticasone Propionate Nasal 50 MCG/SPRAY BOTTLE NS SCH (08:36)
[2021-11-28] MEDS: ALPRAZolam 0.5 MG TABLET PO PRN (09:10)
[2021-11-28 09:11] VITALS: BP 109/46; PULSE 81; TEMP 98.9
[2021-11-28 10:50] LABS: BUN/Creatinine Ratio 25 (6-26); Blood Urea Nitrogen 19 mg/dL (8-23); Calcium 8.5 mg/dL (8.6-10.3); Carbon Dioxide 28 mEq/L (23-29); Chloride 107 mEq/L (98-107); Glucose 118 mg/dL (70-105); Osmolality,Calculated 295 (280-300); Potassium 3.7 mEq/L (3.5-5.1); Sodium 141 mEq/L (136-145); eGFR For African Americans > 60 (> 60); eGFR For Non-African Americans > 60 (> 60)
== END 2021-11-28 13:11 | disposition home or self-care (01) | DRG 246 ==
LOC: EMEROOARM 21:40 → ICNU 21:40 → 2NNU 11-27 09:58
PROVIDERS: ADMIT Internal Medicine Cardiovascular Disease; ATTEND Internal Medicine Cardiovascular Disease

== ENCOUNTER 2021-12-10 11:42 | Observation (INO) ==
[2021-12-10] MEDS: Aspirin 81 MG TAB.CHEW PO ONE ×2 (12:23→13:14)
[2021-12-10 12:24] LABS: Basophils # 0.1 K/mcL (0.0-0.2); Basophils % 0.5 %; Eosinophils # 0.1 K/mcL (0.0-0.6); Eosinophils % 1.3 %; Hemoglobin 12.4 g/dL (11.5-15.4); Immature Granulocytes % 0.4 % (0-4); Lymphocytes # 1.3 K/mcL (0.6-4.6); Lymphocytes % 12.7 %; Mean Corpuscular HGB Conc 32.6 g/dL (31.6-35.5); Mean Corpuscular Hemoglobin 33.1 pg (28.0-33.3); Mean Corpuscular Volume 101.3 fL (83.0-100.0); Mean Platelet Volume 10.3 fL (9.4-12.4); Monocytes # 0.7 K/mcL (0.0-1.3); Monocytes % 6.6 %; Neutrophils # 7.8 K/mcL (1.6-8.9); Platelet Count 204 K/mcL (140-400); Red Blood Count 3.75 M/mcL (3.82-4.97); Red Cell Distribution Width 14.2 % (11.5-14.5); Segmented Neutrophils % 78.5 %; White Blood Count 9.9 K/mcL (4.3-11.1)
[2021-12-10 12:33] LABS: INR 1.2; Prothrombin Time 13.2 Seconds (9.4-12.1)
[2021-12-10] MEDS ORDERED: Ondansetron 4 MG/2 ML VIAL IVP ONE (12:35)
[2021-12-10 13:05] LABS: BUN/Creatinine Ratio 20 (6-26); Blood Urea Nitrogen 18 mg/dL (8-23); Calcium 9.1 mg/dL (8.6-10.3); Carbon Dioxide 27 mEq/L (23-29); Chloride 105 mEq/L (98-107); Glucose 171 mg/dL (70-105); Osmolality,Calculated 294 (280-300); Potassium 3.5 mEq/L (3.5-5.1); Sodium 139 mEq/L (136-145); Troponin I 0.04 ng/mL (< 0.04); eGFR For African Americans > 60 (> 60); eGFR For Non-African Americans 59 (> 60)
[2021-12-10] MEDS ORDERED: *HR* Heparin 5,000 UNIT/ML VIAL IVP PRN ×2 (14:36)
[2021-12-10] MEDS ORDERED: *HR* Heparin 5,000 UNIT/ML VIAL IVP ONE (14:36)
[2021-12-10] MEDS ORDERED: Heparin 25,000UNIT/250ML 1/2NS 25,000 UNIT/250 ML IV.SOLN IVC SCH (14:45)
[2021-12-10] MEDS ORDERED: Melatonin 3 MG TABLET PO PRN (14:56)
[2021-12-10] MEDS ORDERED: Naloxone 0.4 MG/ML INJ IVP PRN (14:56)
[2021-12-10] MEDS ORDERED: Ondansetron 4 MG/2 ML VIAL IVP PRN (14:56)
[2021-12-10] MEDS ORDERED: Acetaminophen 325 MG TABLET PO PRN (14:56)
[2021-12-10] MEDS ORDERED: tiZANidine 4 MG TABLET PO PRN (15:02)
[2021-12-10] MEDS ORDERED: Perflutren Lipid Microsphere 1.3 ML in 0.9 % Sodium Chloride 8.7 ML IVP PRN (15:10)
[2021-12-10] MEDS: Nitroglycerin 0.4 MG TAB.SUBL SL SCH ×2 (18:12→18:13)
[2021-12-10] MEDS ORDERED: ALPRAZolam 1 MG TABLET PO SCH (21:00)
[2021-12-10] MEDS ORDERED: traZODone 50 MG TABLET PO SCH (21:00)
[2021-12-10] MEDS: Metoprolol XL (24 HR) Succ 25 MG TAB.ER.24H PO SCH (21:14)
[2021-12-10] MEDS: Venlafaxine XR (24 HR) 150 MG CAP.ER.24H PO SCH (21:14)
[2021-12-10] MEDS: *HR* Ticagrelor 90 MG TABLET PO SCH (21:15)
[2021-12-11 01:19] LABS: Hematocrit 38.4 % (35.3-44.9); Hemoglobin 12.5 g/dL (11.5-15.4); Mean Corpuscular HGB Conc 32.6 g/dL (31.6-35.5); Mean Corpuscular Hemoglobin 32.8 pg (28.0-33.3); Mean Corpuscular Volume 100.8 fL (83.0-100.0); Mean Platelet Volume 10.6 fL (9.4-12.4); Platelet Count 206 K/mcL (140-400); Red Blood Count 3.81 M/mcL (3.82-4.97)
[2021-12-11 01:36] LABS: BUN/Creatinine Ratio 19 (6-26); Blood Urea Nitrogen 17 mg/dL (8-23); Calcium 9.3 mg/dL (8.6-10.3); Carbon Dioxide 26 mEq/L (23-29); Chloride 106 mEq/L (98-107); Glucose 109 mg/dL (70-105); Magnesium 2.2 mg/dL (1.6-2.6); Osmolality,Calculated 292 (280-300); Potassium 3.8 mEq/L (3.5-5.1); Sodium 140 mEq/L (136-145); eGFR For African Americans > 60 (> 60); eGFR For Non-African Americans > 60 (> 60)
[2021-12-11] MEDS: Metoprolol XL (24 HR) Succ 25 MG TAB.ER.24H PO SCH (08:30)
[2021-12-11] MEDS: *HR* Ticagrelor 90 MG TABLET PO SCH (08:31)
[2021-12-11] MEDS: Venlafaxine XR (24 HR) 150 MG CAP.ER.24H PO SCH (08:31)
[2021-12-11] MEDS ORDERED: Furosemide 20 MG TABLET PO SCH (09:00)
[2021-12-11] MEDS ORDERED: Aspirin 81 MG TAB.CHEW PO SCH (09:00)
[2021-12-11 10:11] VITALS: BP 157/82; PULSE 56; TEMP 98.2; O2SAT 96
== END 2021-12-11 14:55 | disposition home or self-care (01) ==
LOC: 3BNU 11:42 → EMEROOARM 11:42 → 3BNU 14:52 → SUATTDRO 14:59
PROVIDERS: ADMIT Student in an Organized Health Care Education/Training Program; ATTEND Internal Medicine